=== PATIENT | male | born 1950 | race Caucasian/White ===

== ENCOUNTER 2021-07-05 17:14 | Emergency (ER) | payer MEDICARE, OTHER ==
[~2021-07-05] VITALS: Ht 167.6 cm; Wt 91.1 kg
[2021-07-05 17:14] VITALS: BP 147/82
[2021-07-05] MEDS ORDERED: LISI20TA33 (17:32)
[2021-07-05] MEDS ORDERED: OMEP-218 (17:32)
[2021-07-05] MEDS ORDERED: SIMV20TA22 (17:32)
== END 2021-07-05 20:38 | disposition left against medical advice (07) ==
LOC: M ED 17:14
DX: Z53.29 Procedure and treatment not carried out because of patient's decision for other reasons (principal)

== ENCOUNTER → 2021-07-05 | Outpatient (CLI) | payer MEDICARE, OTHER ==
[~2021-07-05] MED LIST: LISI20TA33; OMEP-218; SIMV20TA22
--- NOTE | 2021-07-05 16:49 | REP ---
INDICATION: SWELLING/MASS/LUMP, LT LEG PAIN, R/O DVT. COMPARISON: None. TECHNIQUE: Multiple ultrasonographic images of the deep venous structures of the left lower extremity were obtained from the inguinal ligament to the ankle. Venous compression techniques, color doppler imaging, and augmentation techniques were also obtained where appropriate. As per the ACR guidelines the anterior tibial vein can not be effectively evaluated. Only compression techniques in the calf on the peroneal and posterior tibial veins was attempted/performed. FINDINGS: There is a focus of abnormal echogenic material seen within the common femoral vein at the level of the greater saphenous vein. This area is non coaptable. No abnormality seen involving the superficial femoral vein or popliteal vein. In the calf the posterior tibial veins and peroneal veins compress normally. In the left inguinal region there is a large solid irregular 5.3 x 3.4 x 4.5 cm sized mass. IMPRESSION: 1. Common femoral vein thrombosis as described above. 2. Large left groin mass and seemingly of lymph node origin and for which clinical evaluation is necessary. <Electronically signed by Ronald Dotson > 07/05/21 [id number]
== END ==
LOC: M RAD 15:29
PROVIDERS: ATTEND Physician Assistant
DX: I82.511 Chronic embolism and thrombosis of right femoral vein (principal)

== ENCOUNTER → 2021-07-06 | Outpatient (CLI) | payer MEDICARE, OTHER ==
[2021-07-06 13:08] LABS: BASO # 0.1 10^3/uL (0.0-0.2); BASO % 0.9 % (0.0-1.0); EOS # 0.4 10^3/uL (0.0-0.5); EOS % 5.1 % (0.0-3.0); HEMATOCRIT 44.5 % (42.0-52.0); HEMOGLOBIN 14.9 g/dl (13.5-17.5); LYMPH # 1.4 10^3/uL (1.5-5.0); LYMPH % 18.5 % (24.0-44.0); MEAN CORPUSCULAR HEMOGLOBIN 28.1 pg (27.0-33.0); MEAN CORPUSCULAR HGB CONC 33.5 g/dl (32.0-36.5); MEAN CORPUSCULAR VOLUME 83.8 fl (80.0-96.0); MONO # 0.8 10^3/uL (0.0-0.8); MONO % 10.1 % (2.0-8.0); PLATELET COUNT, AUTOMATED 184 10^3/uL (150-450); RED BLOOD COUNT 5.31 10^6/uL (4.30-6.10); WHITE BLOOD COUNT 7.6 10^3/uL (4.0-10.0)
[2021-07-06 13:21] LABS: INR 1.12; PROTHROMBIN TIME 14.8 SECONDS (12.7-14.5)
[2021-07-06 13:22] LABS: PARTIAL THROMBOPLASTIN TIME 31.7 SECONDS (25.9-37.0)
[2021-07-06 13:54] LABS: ERYTHROCYTE SEDIMENTATION RATE 8 mm/hr (0-20)
[2021-07-06 14:54] LABS: ALBUMIN 4.1 GM/DL (3.2-5.2); BILIRUBIN,TOTAL 0.7 MG/DL (0.2-1.0); CALCIUM LEVEL 9.7 MG/DL (8.8-10.2); CREATININE FOR GFR 1.97 MG/DL (0.70-1.30); POTASSIUM SERUM 4.8 MEQ/L (3.5-5.1); TOTAL PROTEIN 7.8 GM/DL (6.4-8.2)
== END ==
LOC: M LAB 11:42
PROVIDERS: ATTEND Physician Assistant
DX: I82.409 Acute embolism and thrombosis of unspecified deep veins of unspecified lower extremity (principal)

== ENCOUNTER → 2021-07-13 | Outpatient (REF) | payer MEDICARE, OTHER | LOC: M LAB REF 18:54 | PROVIDERS: ATTEND Surgery | DX: C82.90 Follicular lymphoma, unspecified, unspecified site (principal) ==

== ENCOUNTER → 2021-08-02 | Outpatient (CLI) | payer MEDICARE, OTHER ==
[~2021-08-02] MED LIST changes: +ECOT81TA5 PO; +ELIQ5TAB PO; -LISI20TA33; +LISI20TA33 PO; -OMEP-218; +OMEP-218 PO; +PERC5TAB12 PO; -SIMV20TA22; +SIMV20TA22 PO
--- NOTE | 2021-08-03 13:09 | ECHO ---
ECHOCARDIOGRAM DATE OF PROCEDURE: 08/02/2021 Age: 70 Gender: Height: Weight: REFERRING PROVIDER: Dr. Elsie Gramajo. PATIENT LOCATION: Outpatient. REASON FOR THE TESTING: Chemotherapy ____ monitoring. 2D MEASUREMENTS: IVS 1.1 cm LV 3.7 cm LVPW 1.1 cm LA 3.6 cm Aorta 3.3 cm DOPPLER MEASUREMENT Peak velocity across the aortic valve 1.3 m/s Peak velocity across the LVOT 0.88 m/s Mitral E 0.65 Mitral A 0.82 with a ratio of 0.8 2D COMMENTS: 1. Normal left ventricular size, wall thickness, and normal global left ventricular systolic function with a hyperdynamic left ventricle. The estimated left ventricular systolic ejection fraction is 60 to 70%. 2. Normal left atrium. Normal right atrium and right ventricle. 3. The atrial septum appeared to be normal without evidence of defect or shunt. 4. Normal aortic root. 5. No pericardial effusion seen. 6. Minimally calcified aortic valve with normal leaflet excursion. Mildly calcified mitral annulus with normal appearing mitral valve leaflet motion. Normal tricuspid valve and pulmonic valve. The proximal pulmonary artery branches were not well visualized. 7. The inferior vena cava was not visualized. DOPPLER: No significant valvular abnormalities detected. Abnormal relaxation pattern was noted across the mitral valve leaflets as well as the mitral valve annulus consistent with features of grade 1 left ventricular diastolic dysfunction. IMPRESSION: 1. Normal global left ventricular systolic function. There were some features of grade 1 left ventricular diastolic dysfunction manifested by abnormal relaxation. 2. Aortic valve sclerosis without stenosis or aortic regurgitation. 3. Mitral annulus calcification. No evidence of mitral regurgitation or stenosis.
== END ==
LOC: M CARPUL 10:49
PROVIDERS: ATTEND Internal Medicine Medical Oncology
DX: C91.50 Adult T-cell lymphoma/leukemia (HTLV-1-associated) not having achieved remission (principal)

== ENCOUNTER → 2021-08-03 | Outpatient (CLI) | payer MEDICARE, OTHER ==
[~2021-08-03] MED LIST changes: +LIDOCAINE 1% MDV 20ML VIAL As Ordered ONE; +MIDAZOLAM INJ 2MG/2ML VIAL (J2250 PER 1MG) As Ordered ONE; +NS 1,000 ML IV SCH; +ceFAZolin 2 GM/D5W 50 ML IV BAG (J0690 PER 500MG) As Ordered ONE; +ceFAZolin SOD 2 GM in IV 1 EA IV ONE; +diphenhydrAMINE 50MG/ML VIAL (J1200) As Ordered ONE; +fentaNYL 100 MCG/2 ML INJECTION (J3010) As Ordered ONE
--- NOTE | 2021-08-03 14:33 | IRHP ---
[facility] IR Pre-Procedure H & P General Date of Service: Aug 03, 2021 Procedure: Same Day Surgery Interval History and Physical I have seen the patient and reviewed last H & P performed within 30 days. There is no significant interval change. History of Present Illness Chief Complaint The patient is a 70-year-old male admitted with a reason for visit of B Cell Lymphoma. PRE-PROCEDURE DIAGNOSIS: Lymphoma HEART: Normal rate. LUNGS: Normal breathing at rest. ASA Classification ASA Classification: II-Mild systemic disease Mallampati Score: II NPO: Yes Problems with prior sedation: No Obstructive Sleep Apnea: No Plan moderate sedation Allergies Coded Allergies: No Known Allergies (Verified Allergy, Unknown, 07/05/21) Home Medications Scheduled Apixaban (Eliquis), 1 TAB PO BID, (Reported) Lisinopril (Lisinopril), 1 TAB PO DAILY, (Reported) Omeprazole (Omeprazole), 1 TAB PO DAILY, (Reported) Simvastatin (Simvastatin), TAB PO DAILY, (Reported) Scheduled PRN Oxycodone HCl/Acetaminophen (Percocet 5-325 mg Tablet), 1 TAB PO Q4HP PRN for PAIN Discontinued Medications Aspirin (Ecotrin), 1 TAB PO DAILY, (Reported) Discontinued Reason: PCP discontinued med VS, I&O, 24H, Fishbone Vital Signs/I&O Vital Signs Date Time Temp Pulse Resp B/P (MAP) Pulse Ox O2 Delivery O2 Flow Rate FiO2 08/03/21 14:25 64 18 100 Nasal Cannula 2.0 08/03/21 13:00 97.6 EWA CAMPO MD Aug 03, 2021 14:33
--- NOTE | 2021-08-03 14:34 | IRPON ---
IR Postoperative Note Date Of Procedure: Aug 03, 2021 Time Of Procedure: 14:33 IR Postoperative Note IR Ultrasound and fluoroscopy guided port placement IR Ultrasound of the neck. IR Moderate sedation. Clinical indication: Lymphoma. Physician: Dr. Hammond. Procedure: The patient was advised of the benefits, risks, and alternatives of the procedure and informed consent was obtained. A time-out was performed with verification of the patient's name, MRN, site of procedure and type of procedure to be performed. The patient was positioned in the supine position on the angiographic table. The site was prepped and draped in the usual sterile fashion. Moderate sedation was performed by the physician including the presence of an independent trained RN who assisted and monitored the patient's level of consciousness and physiologic status. Following the administration of fentanyl and Versed , the physician spent 45 minutes of continuous face to face time with the patient. Ultrasound of the neck reveals a patent and compressible right internal jugular vein. A pickers material handlers radiograph reveals mediastinal adenopathy. The neck and anterior chest wall were anesthetized with lidocaine. The right internal jugular vein was accessed using a microintroducer needle under ultrasound guidance, via a lateral approach. An 018 wire was advanced into the superior vena cava, the needle was removed and a microsheath was placed. An Amplatz wire was then passed into the inferior vena cava. An incision at the internal jugular vein access site and anterior chest wall were made using a scalpel. An incision was made at the anterior chest wall. A small pocket was created using a combination of blunt and sharp dissection. A tunneling device was then used to pass the catheter from the pocket to the neck puncture site. An 8- [place] Angio VastPark Smart power port was then positioned in the pocket. The catheter was then measured and cut. The introducer sheath was exchanged for a peel-away sheath. The catheter was passed through the peel-away sheath into the internal jugular vein and the peel-away sheath was removed. The port tip was positioned at the cavoatrial junction. The port was then accessed with a Burton needle. The port flushes and aspirates well. The puncture site in the neck was closed. The chest wall incision was then closed with 2-0 Vicryl and 4-0 Monocryl. Glue and Steri- Strips were applied. A sterile dressing was then applied. The patient tolerated the procedure well and was returned to the PRU in stable condition. Estimated blood loss: <5 ml. Complications: None. Conclusion: 1. Successful placement of an 8-[place] Angio dynamics Smart power port via the right internal jugular vein. The port is ready for immediate use. 2. Patient to follow up in IR clinic in 2 weeks. Thank you for this referral. EWA HAMMOND MD Aug 03, 2021 14:34
[2021-08-03 16:15] VITALS: BP 152/86
== END ==
LOC: M IRPRO 12:02
PROVIDERS: ATTEND Radiology Diagnostic Radiology
DX: C83.38 Diffuse large B-cell lymphoma, lymph nodes of multiple sites (principal); Z79.899 Other long term (current) drug therapy
CPT/HCPCS: 36561; 99152; 99153; C1769; C1788; C1894; J0690; J1200; J1642; J1644; J2250; J3010

== ENCOUNTER → 2021-08-10 | Outpatient (CLI) | payer MEDICARE, OTHER ==
[~2021-08-10] MED LIST changes: -MIDAZOLAM INJ 2MG/2ML VIAL (J2250 PER 1MG) As Ordered ONE; -NS 1,000 ML IV SCH; -ceFAZolin 2 GM/D5W 50 ML IV BAG (J0690 PER 500MG) As Ordered ONE; -ceFAZolin SOD 2 GM in IV 1 EA IV ONE; -diphenhydrAMINE 50MG/ML VIAL (J1200) As Ordered ONE; -fentaNYL 100 MCG/2 ML INJECTION (J3010) As Ordered ONE
[2021-08-10 08:22] LABS: BASO # 0.1 10^3/uL (0.0-0.2); BASO % 1.5 % (0.0-1.0); EOS # 0.4 10^3/uL (0.0-0.5); EOS % 7.1 % (0.0-3.0); HEMATOCRIT 42.8 % (42.0-52.0); LYMPH # 1.5 10^3/uL (1.5-5.0); LYMPH % 24.3 % (24.0-44.0); MEAN CORPUSCULAR HEMOGLOBIN 28.4 pg (27.0-33.0); MEAN CORPUSCULAR HGB CONC 32.7 g/dl (32.0-36.5); MEAN CORPUSCULAR VOLUME 86.8 fl (80.0-96.0); MONO # 0.6 10^3/uL (0.0-0.8); MONO % 9.3 % (2.0-8.0); NEUTROPHILS # 3.5 10^3/uL (1.5-8.5); NEUTROPHILS % 57.5 % (36.0-66.0); PLATELET COUNT, AUTOMATED 168 10^3/uL (150-450); RED BLOOD COUNT 4.93 10^6/uL (4.30-6.10)
[2021-08-10 10:00] VITALS: BP 137/76
--- NOTE | 2021-08-10 17:04 | REP ---
INDICATION: LYMPHOMA. COMPARISON: None. TECHNIQUE: The procedure is performed by KRISTA Barclay, under the direct supervision of Dr. Jack. The risks and benefits of the procedure were explained to the patient and informed consent was obtained both orally and written. Directly prior to the start of the procedure, a formal timeout was done in the exam room. The left iliac crest was localized using CT guidance. Skin was prepped and draped in the usual sterile fashion. Twelve ml of 1% lidocaine was used as a local anesthetic. FINDINGS: Using CT guidance an 11 gauge bone biopsy system was inserted. Approximately 6 mL of marrow fluid was obtained, as well as 1 core of bone. Patient tolerated the procedure well and there were no immediate complications. After the appropriate amount of monitored convalescence the patient was discharged from the department. IMPRESSION: CT-guided bone marrow aspiration and core bone biopsy. <Electronically signed by Sonya Hogue > 08/10/21 1108 <Electronically signed by Davdi Jack > 08/10/21 1700
== END ==
LOC: M IRPRO 07:38
PROVIDERS: ATTEND Internal Medicine Medical Oncology
DX: C83.38 Diffuse large B-cell lymphoma, lymph nodes of multiple sites (principal)

== ENCOUNTER 2021-08-18 11:45 | Inpatient (IN) | payer MEDICARE, OTHER ==
[~2021-08-18] VITALS: Ht 165.1 cm; Wt 89.3 kg
[~2021-08-18 11:45] MED LIST changes: +ALLO10TA PO; -LIDOCAINE 1% MDV 20ML VIAL As Ordered ONE; +ONDA8TAB10 PO; +PRED50TA PO; +PROC10TA4 PO
--- OUTSIDE RECORDS SUMMARY | 2021-08-18 13:42 | CCD | Continuity of Care Document ---
Author Author Michel LEACH DO Organization Unknown Address [address] [facility] [address] [place] [address] Phone [phone] Care Team Providers Care Plant Care Worker Name Role Phone Jerry Leach DO AUTM [phone] Problems Description No Information Available Social History Type Date Description Comments Sex Unknown ETOH Use Occasionally consumed beer in th e past no drinking now Tobacco Use Start: Unknown End: Unknown Patient is a former smoker smoked for 3 yrsbox cigars a month Allergies and adverse reactions Description No Known Drug Allergies Medications Active Medications SIG Qnty Indications Ordering Provide r Date Oxycodone-Acetaminophen 5-325mg Tablets Elsie Gramajo MD Eliquis 5mg Tablets Unknown Lisinopril 20mg Tablets Unknown Omeprazole 20mg Capsules Unknown Simvastatin 20mg Tablets Unknown Immunizations Description No Information Available Vital Signs Date Vital Result Comment 08/07/2021 9:56am BP Systolic 118 mmHg BP Diastolic 68 mmHg Heart Rate 78 /min Height 6475 inches 539'7" Weight 199.12 lb BMI (Body Mass Index) 0.0 kg/m2 Results Description No Information Available Procedures Description No Information Available Medical Devices Description No Information Available Encounters Description No Information Available Assessments Description No Information Available Plan of Treatment No Information Available Functional Status Description No Information Available Mental Status Description No Information Available Referrals Description No Information Available
--- OUTSIDE RECORDS SUMMARY | 2021-08-18 13:42 | CCD | Continuity of Care Document ---
Author Author MARCO BARNES, Michel ROYAL [facility] Unknown Address [address] [facility] [address] [place] [address] Phone [phone] Care Team Providers Care Pharmacist Hospital Name Role Phone Mau Gonzales AUTM [phone] Elsie Mccullough M.D. AUTM [phone] Problems Active Problems Provider Date Essential hypertension Dann Chamberlain MD Onset: 021 Social History Type Date Description Comments Sex Unknown ETOH Use Denies alcohol use Tobacco Use Start: Unknown Denies Smoking Recreational Drug Use Denies Drug Use Allergies and adverse reactions Description No Known Drug Allergies Medications Active Medications SIG Qnty Indications Ordering Provide r Date Omeprazole 20mg Capsules DR 1 by mouth every day Unknown Eliquis 5mg Tablets 1 tab by mouth twice a day 60tabs Unknown Lisinopril 20mg Tablets 1 tab by mouth every day Unknown Simvastatin 20mg Tablets 1 tab by mouth every day Unknown Immunizations Description No Information Available Vital Signs Date Vital Result Comment 07/20/2021 10:39am BP Systolic 156 mmHg BP Diastolic 86 mmHg Body Temperature 97.5 F Height 66 inches 5'6" Weight 202.00 lb BMI (Body Mass Index) 32.6 kg/m2 [place] Body Weight 142 lb Weight 91.627 kg BSA (Body Surface Area) 2.01 m2 07/13/2021 3:31pm BP Systolic 152 mmHg BP Diastolic 81 mmHg Heart Rate 77 /min Body Temperature 98.8 F Height 66 inches 5'6" Weight 200.00 lb BMI (Body Mass Index) 32.3 kg/m2 [place] Body Weight 142 lb Weight 90.720 kg BSA (Body Surface Area) 2.00 m2 Results Test Acquired Date Facility Test Result H/L Range Note Laboratory test finding 07/13/2021 [facility] [address] [place], [place] [id number] [phone] Pathology Request For Service <pending> Procedures Date Code Description Status 07/20/2021 76832 Office/Outpatient Established Lo w MDM 20-29 Min Completed 07/13/2021 70438 Office/Outpatient New Low MDM 30 -44 Minutes Completed Medical Devices Description No Information Available Encounters Type Date Location Provider Dx Diagnosis Office Visit 07/20/2021 10:45a [facility] Iftikhar Chamberlain MD C85.90 Non-Hodgkin lymphoma, unspec ified, unspecified site Assessments Date Code Description Provider 07/20/2021 C85.90 Malignant lymphoma Dann Campbell MD 07/13/2021 R19.00 Groin mass Dann rodgers MD Plan of Treatment 07/20/2021 - Dann Chamberlain MD* C85.90 Malignant lymphoma* Comments:* I only have the preliminary reading available and their primary consideration is B-cell lymphoma pending further studies as well as second opinion reading from [facility]. Given the initial findings, I will refer her to medical oncology (Dr. Mccullough) for further evaluation and treatment of the lymphoma. I told him that if it turns out they will need more tissue, we may need a full excision of the left groin mass and with him we will need to do this in the operating room but otherwise if they have enough tissues, may not need any further surgical intervention with regards to the left groin mass.Follow-up as needed. Functional Status Description No Information Available Mental Status Description No Information Available Referrals Refer to Reason for Referral Status Appt Date Elsie Mccullough M.D. DEAR DR MCCULLOUGH: PLEASE EVAL UATE AND TREAT MICHEL FLORENTINO. I only have the preliminary reading available and their primary consideration is B-cell lymphoma pending further studies as well as second opinion reading from [facility]. Given the initial findings, I will refer her to medical oncology (Dr. Mccullough) for further evaluation and treatment of the lymphoma. I told him that if it turns out they will need more tissue, we may need a full excision of the left groin mass and with him we will need to do this in the operating room but otherwise if they have enough tissues, may not need any further surgical intervention with regards to the left groin mass. I have attached my records for your review. Thank you in advance for seeing him. Sincerely, Dann Chamberlain M.D. [facility] [address], [place] [id number] [phone] Dann Chamberlain MD LARGE MASS LEFT INGUINAL REGION Scheduled 07/13/2021 [address] [facility] [address] [place], [place] [id number] [phone]
--- OUTSIDE RECORDS SUMMARY | 2021-08-18 13:42 | CCD | Continuity of Care Document ---
Author Author MARCO BARNES, Michel ROYAL [facility] Unknown Address [address] [facility] [address] [place] [address] Phone [phone] Care Team Providers Care Prenatal Nurse Name Role Phone ChristianMau AUTM [phone] Problems Active Problems Provider Date Essential hypertension [...] lb BMI (Body Mass Index) 32.6 kg/m2 [place] Body Weight 142 lb Weight 91.627 kg BSA (Body Surface Area) 2.01 m2 07/13/2021 3:31pm BP Systolic 152 mmHg BP Diastolic 81 mmHg Heart Rate 77 /min Body Temperature 98.8 F Height 66 inches 5'6" Weight 200.00 lb BMI (Body Mass Index) 32.3 kg/m2 [place] Body Weight 142 lb Weight 90.720 kg BSA (Body Surface Area) 2.00 m2 Results Test Acquired Date Facility Test Result H/L Range Note Laboratory test finding 07/13/2021 [facility] Pathology [address] [place] [address] [phone] Pathology Request For Service <pending> Procedures Date Code Description Status 07/13/2021 00129 Office/Outpatient New Low MDM 30 -44 Minutes Completed Medical Devices Description No Information Available Encounters Description No Information Available Assessments Date Code Description Provider 07/20/2021 C85.90 Malignant lymphoma Dann Campbell MD 07/13/2021 R19.00 Groin mass Dann rodgers MD Plan of Treatment 07/20/2021 - Dann Chamberlain MD* C85.90 Malignant lymphoma* Comments:* B cell lymphoma on Functional Status Description No Information Available Mental Status Description No Information Available Referrals Refer to Reason for Referral Status Appt Dann Chamberlain MD LARGE MASS LEFT INGUINAL REGION Scheduled 07/13/2021 [address] [facility] [address] [place] [address] [phone]
--- OUTSIDE RECORDS SUMMARY | 2021-08-18 13:42 | CCD | Continuity of Care Document ---
Author Organization Unknown Address Unknown Phone Unavailable Care Team Providers Care Rod Tape Operator Name Role Phone Jerry Farley DO AUTM [phone] Problems Description No Information Available Social History Type Date Description Comments Sex Unknown ETOH Use Occasionally consumed beer in e past no drinking now Tobacco Use Start: Unknown End: Unknown Patient is a former smoker smoked for 3 yrsbox cigars a month Allergies and adverse reactions Description No Known Drug Allergies Medications Active Medications SIG Qnty Indications Ordering Provide r Date Oxycodone-Acetaminophen 5-325mg Tablets Elsie Gramajo MD Eliquis 5mg Tablets Unknown Lisinopril 20mg Tablets Unknown Omeprazole 20mg Capsules DR Unknown Simvastatin 20mg Tablets Unknown Immunizations Description No Information Available Vital Signs Date Vital Result Comment 08/07/2021 9:56am BP Systolic 118 mmHg BP Diastolic 68 mmHg Heart Rate 78 /min Height 6475 inches 539'7" Weight 199.12 lb BMI (Body Mass Index) 0.0 kg/m2 Results Test Acquired Date Facility Test Result H/L Range Note CBC With Differential 08/10/2021 [facility] [address] [place], [place] [id number] [phone] White Blood Count 6.0 10 Normal 4.0-10.0 Red Blood Count 4.93 10 Normal 4.30-6.10 Hemoglobin 14.0 g/dL Normal 13.5-17.5 Hematocrit 42.8 % Normal 42.0-52.0 Mean Corpuscular Volume 86.8 fl Normal 80.0-96.0 Mean Corpuscular Hemoglobin 28.4 pg Normal 27.0-33.0 Mean Corpuscular HGB Conc 32.7 g/dL Normal 32.0-36.5 Red Cell Distribution Width 12.9 % Normal 11.5-14.5 Platelet Count, Automated 168 10 Normal 150-450 Neutrophils % 57.5 % Normal 36.0-66.0 Lymph % 24.3 % Normal 24.0-44.0 Taliaferro % 9.3 % High 2.0-8.0 Eos % 7.1 % High 0.0-3.0 Baso % 1.5 % High 0.0-1.0 Immature Granulocyte % 0.3 % Normal 0-3.0 Nucleated Red Blood Cell % 0.0 % Normal 0-0 Neutrophils # 3.5 10 Normal 1.5-8.5 Lymph # 1.5 10 Normal 1.5-5.0 Taliaferro # 0.6 10 Normal 0.0-0.8 Eos # 0.4 10 Normal 0.0-0.5 Baso # 0.1 10 Normal 0.0-0.2 Procedures Description No Information Available Medical Devices Description No Information Available Encounters Description No Information Available Assessments Date Code Description Provider 08/07/2021 C85.90 Non-Hodgkin lymphoma, unspecifie d, unspecified site Jerry Farley DO 08/07/2021 I82.402 Acute embolism and t hrombosis of unspecified deep veins of left lower extremity Jerry Farley DO 08/07/2021 I10 Essential (primary) hypertension Jerry Farley DO 08/07/2021 E78.5 Hyperlipidemia, unspecified Chri romy Farley DO Plan of Treatment Future Appointment(s):* 11/07/2021 9:00 am - Jerry Farley DO at [facility] 08/07/2021 - Jerry Farley DO* C85.90 Non-Hodgkin lymphoma, unspecified, unspecified site* Comments:* Unclear on exact type of lymphoma, he is followed by Dr. Gramajo and currently undergoing further evaluation. Has follow up with Dr. Gramajo in about 10 days. Has BM biopsy in 3 days. Will review all records when available. Holding off on labs at this time, but EKG reviewed. His pain is well controlled on current regimen. * I82.402 Acute embolism and thrombosis of unspecified deep veins of left lower extremity* Comments:* Still symptomatic, but this is a relatively recent diagnosis. He is compliant with DOAC. This is a provoked DVT, likely can stop treatment once cancer has been treated. * I10 Essential (primary) hypertension* Comments:* Well controlled and at target on current regimen. * E78.5 Hyperlipidemia, unspecified* Comments:* He is compliant with statin, will review recent blood work for lipid panel. Functional Status Description No Information Available Mental Status Description No Information Available Referrals Description No Information Available
--- OUTSIDE RECORDS SUMMARY | 2021-08-18 13:42 | CCD | Continuity of Care Document ---
Author Author MARCO BARNES, Michel ROYAL [facility] Unknown Address [address] [facility] [address] [place] [address] Phone [phone] Care Team Providers Care Wet Pour Mixer Name Role Phone Mau Gonzales AUTM [phone] Elsie Mccullough M.D. AUTM [phone] Problems Active Problems Provider Date Essential hypertension [...] lb BMI (Body Mass Index) 32.6 kg/m2 [place] Body Weight 142 lb Weight 91.627 kg BSA (Body Surface Area) 2.01 m2 07/13/2021 3:31pm BP Systolic 152 mmHg BP Diastolic 81 mmHg Heart Rate 77 /min Body Temperature 98.8 F Height 66 inches 5'6" Weight 200.00 lb BMI (Body Mass Index) 32.3 kg/m2 [place] Body Weight 142 lb Weight 90.720 kg BSA (Body Surface Area) 2.00 m2 Results Test Acquired Date Facility Test Result H/L Range Note Laboratory test finding 07/13/2021 [facility] [address] [place], [place] [id number] [phone] Pathology Request For Service (SEE NOTE) 1 1 Addendum 1 Entered: -7420 This addendum is being issued to report additional results: Positive for IGH-BCL2 [t(14;18)] gene rearrangement. Negative for BCL6 gene rearrangement. Negative for MYC gene rearrangement. These findings are consistent with diagnosis of follicular lymphoma and diffuse large B-cell lymphoma. There is no evidence of "double-hit" or "triple-hit" diffuse large B-cell lymphoma. The diagnosis remains unchanged. Please see the scanned documentation for the full hematopathology report ([id number]). 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 * FISH testing is pending, and the results will be reported in an addendum. Comment: The DLBL is likely a large cell transformation of follicular lymphoma. The cells are smaller than usual. Immunohistochemical stains at [facility] show that the lesional cells are diffusely positive for CD20 and negative for SOX-10. Ancillary studies at [facility] showed diffuse CD10, CD20, bcl-2 positivity, and 40% positivity for bcl-2. MUM-1 and c-myc were negative. CD3 and CD5 highlighted scattered T-cells. The proliferation index by ki-67 IHC was 70%. In the areas of follicular lymphoma, the irregular follicles maribel with CD10, CD20, bcl-6 and strong bcl-2. CD23 highlights follicular dendritic meshworks. The proliferation index by ki-67 IHC was low (<5%). OFELIA-AUDI and cyclin D1 were negative. 07/25/2021813 CLINICAL DIAGNOSIS Mass left groin 07/14/20211322 GROSS DIAGNOSIS Received in formalin labeled "left groin mass biopsy" and consists of multiple soft christine needle core shaped fragments measuring 1.2 x 1.0 x 0.2 cm. in aggregate. All in one. -SV 07/14/20211322 PRELIMINARY DIAGNOSIS 07/25/2021813 Signed CHESTER MUHAMMAD MD 07/18/2021 0817 (Prelim) Signed CHESTER MUHAMMAD MD 07/25/2021813 Procedures Date Code Description Status 07/20/2021 02156 Office/Outpatient Established Lo w MDM 20-29 Min Completed 07/13/2021 85285 Office/Outpatient New Low MDM 30 -44 Minutes Completed 07/13/2021 89994 Fine Needle Aspiration Biopsy In lcd Ultrasound Guidance Completed Medical Devices Description No Information Available Encounters Type Date Location Provider Dx Diagnosis Office Visit 07/20/2021 10:45a [facility] Iftikhar Chamberlain MD C85.90 Non-Hodgkin lymphoma, unspec ified, unspecified site Office Visit 07/13/2021 3:15p [facility] Iftikhar Chamberlain MD R19.00 Intra-abd and pelvic swellin g, mass and lump, unsp site Assessments Date Code Description Provider 07/20/2021 C85.90 Malignant lymphoma Dann Campbell MD 07/13/2021 R19.00 Groin mass Dann rodgers MD Plan of Treatment 07/20/2021 - Dann Chamberlain MD* C85.90 Malignant lymphoma* Comments:* I only have the preliminary reading available and their primary consideration is B-cell lymphoma pending further studies as well as second opinion reading from [facility]. Given the initial findings, I will refer [...] as well as second opinion reading from [facility]. Given the initial findings, I will refer [...] seeing him. Sincerely, Dann Chamberlain M.D. Created [facility] [address] [place], [place] [address] [phone] Dann Chamberlain MD LARGE MASS LEFT INGUINAL REGION Scheduled 07/13/2021 [address] [facility] [address] [place] [address] [phone]
--- OUTSIDE RECORDS SUMMARY | 2021-08-18 13:43 | CCD | Continuity of Care Document ---
Author Author MARCO BARNES, Michel ROYAL [facility] Unknown Address [address] [facility] [address] [place] [address] Phone [phone] Care Team Providers Care Signal Operator Linguist Name Role Phone ChristianMau AUTM [phone] Problems Active Problems Provider Date Essential hypertension [...] lb BMI (Body Mass Index) 32.6 kg/m2 [place] Body Weight 142 lb Weight 91.627 kg BSA (Body Surface Area) 2.01 m2 07/13/2021 3:31pm BP Systolic 152 mmHg BP Diastolic 81 mmHg Heart Rate 77 /min Body Temperature 98.8 F Height 66 inches 5'6" Weight 200.00 lb BMI (Body Mass Index) 32.3 kg/m2 [place] Body Weight 142 lb Weight 90.720 kg BSA (Body Surface Area) 2.00 m2 Results Test Acquired Date Facility Test Result H/L Range Note Laboratory test finding 07/13/2021 [facility]ology [address] [place] [address] [phone] Pathology Request For Service <pending> Procedures Date Code Description Status 07/13/2021 68477 Office/Outpatient New Low MDM 30 -44 Minutes [...] MASS LEFT INGUINAL REGION Scheduled 07/13/2021 [address] [facility] [address] [place] [address] [phone]
--- OUTSIDE RECORDS SUMMARY | 2021-08-18 13:43 | CCD | Continuity of Care Document ---
Author Author MARCO BARNES, Michel ROYAL Organization Unknown Address [address] [facility] [address] [place] [address] Phone [phone] Care Team Providers Care Powered Bridge Specialist Name Role Phone Fabián Gonzalesbowen Mueller AUTM [phone] Problems Active Problems Provider Date Essential hypertension [...] Available Vital Signs Date Vital Result Comment 07/13/2021 3:31pm BP Systolic 152 mmHg BP Diastolic 81 mmHg Heart Rate 77 /min Body Temperature 98.8 F Height 66 inches 5'6" Weight 200.00 lb BMI (Body Mass Index) 32.3 kg/m2 [place] Body Weight 142 lb Weight 90.720 kg BSA (Body Surface Area) 2.00 m2 Results Test Acquired Date Facility Test Result H/L Range Note Laboratory test finding 07/13/2021 [facility]ology [address] [place], [place] [id number] [phone] Pathology Request For Service <pending> Procedures Description No Information Available Medical Devices Description No Information Available Encounters Description No Information Available Assessments Description No Information Available Plan of Treatment Future Appointment(s):* 07/20/2021 10:45 am - Dann Chamberlain MD at [facility] Functional Status Description No Information Available Mental Status Description No Information Available Referrals Refer to Reason for Referral Status Appt Date Dann Chamberlain MD LARGE MASS LEFT INGUINAL REGION Scheduled 07/13/2021 [address] [place] [id number] [phone]
--- OUTSIDE RECORDS SUMMARY | 2021-08-18 13:43 | CCD ---
Author Author [facility] Organization [facility] Address Unknown Phone Unavailable Care Team Providers Care [employer]usher Assembler Name Role Phone GONZALES, ALMA ROSA MAU RPA-C Unavailable Unavailable GONZALES, ALMA ROSA MAU RPA-C Unavailable Unavailable GONZALES, ALMA ROSA MAU RPA-C Unavailable Unavailable GONZALES, ALMA ROSA MAU RPA-C Unavailable Unavailable GONZALES, ALMA ROSA MAU RPA-C Unavailable Unavailable GONZALES, ALMA ROSA MAU RPA-C Unavailable Unavailable GONZALES, ALMA ROSA MAU RPA-C Unavailable Unavailable GONZALES, ALMA ROSA MAU RPA-C Unavailable Unavailable GONZALES, ALMA ROSA MAU RPA-C Unavailable Unavailable GONZALES, ALMA ROSA MAU RPA-C Unavailable Unavailable GONZALES, ALMA ROSA MAU RPA-C Unavailable Unavailable GONZALES, ALMA ROSA MAU RPA-C Unavailable Unavailable GONZALES, ALMA ROSA MAU RPA-C Unavailable Unavailable GONZALES, ALMA ROSA MAU RPA-C Unavailable Unavailable GONZALES, ALMA ROSA MAU RPA-C Unavailable Unavailable GONZALES, ALMA ROSA MAU RPA-C Unavailable Unavailable GONZALES, ALMA ROAS MAU RPA-C Unavailable Unavailable GONZALES, ALMA ROSA MAU RPA-C Unavailable Unavailable GONZALES, ALMA ROSA MAU RPA-C Unavailable Unavailable GONZALES, ALMA ROSA MAU RPA-C Unavailable Unavailable GONZALES, ALMA ROSA MAU RPA-C Unavailable Unavailable GONZALES, ALMA ROSA MAU RPA-C Unavailable Unavailable GONZALES, ALMA ROSA MAU RPA-C Unavailable Unavailable GONZALES, ALMA ROSA MAU RPA-C Unavailable Unavailable GONZALES, ALMA ROSA MAU RPA-C Unavailable Unavailable GONZALES, ALMA ROSA MAU RPA-C Unavailable Unavailable GONZALES, AMLA ROSA MAU RPA-C Unavailable Unavailable GONZALES, ALMA ROSA MAU RPA-C Unavailable Unavailable GONZALES, ALMA ROSA MAU RPA-C Unavailable Unavailable GONZALES, ALMA ROSA MAU RPA-C Unavailable Unavailable GONZALES, ALMA ROSA MAU RPA-C Unavailable Unavailable GONZALES, ALMA ROSA MAU RPA-C Unavailable Unavailable GONZALES, ALMA ROSA MAU RPA-C Unavailable Unavailable GONZALES, ALMA ROSA MAU RPA-C Unavailable Unavailable GONZALES, ALMA ROSA MAU RPA-C Unavailable Unavailable GONZALES, ALMA ROSA MAU RPA-C Unavailable Unavailable GONZALES, ALMA ROSA MAU RPA-C Unavailable Unavailable GONZALES, ALMA ROSA MAU RPA-C Unavailable Unavailable GONZALES, ALMA ROSA MAU RPA-C Unavailable Unavailable GONZALES, ALMA ROSA MAU RPA-C Unavailable Unavailable GONZALES, ALMA ROSA MAU RPA-C Unavailable Unavailable GONZALES, ALMA ROSA MAU RPA-C Unavailable Unavailable GONZALES, ALMA ROSA MAU RPA-C Unavailable Unavailable BARCORINEUGA, Stephan ROYAL MD Unavailable Unavailable BARAYUGA, Stephan ROYAL MD Unavailable Unavailable BARAYUGA, Stephan ROYAL MD Unavailable Unavailable BARAYUGA, Stephan ROYAL MD Unavailable Unavailable BARAYUGA, Stephan ROYAL MD Unavailable Unavailable BARAYUGA, Stephan ROYAL MD Unavailable Unavailable BARAYUGA, Stephan ROYAL MD Unavailable Unavailable BARAYUGA, Stephan ROYAL MD Unavailable Unavailable BARAYUGA, Stephan ROYAL MD Unavailable Unavailable BARAYUGAStephan MD Unavailable Unavailable BARAYUGAStephan MD Unavailable Unavailable BARAYUGA, Stephan ROYAL MD Unavailable Unavailable BARAYUGA, Stephan ROYAL MD Unavailable Unavailable BARAYUGAStephan MD Unavailable Unavailable BARAYUGAStephan MD Unavailable Unavailable BARAYUGAStephan MD Unavailable Unavailable BARCORINEUGAStephan MD Unavailable Unavailable BARCORINEUGAStephan MD Unavailable Unavailable BARCORINEUGAStephan MD Unavailable Unavailable BARCORINEUGAStephan MD Unavailable Unavailable BARCORINEUGA, Stephan ROYAL MD Unavailable Unavailable BARCORINEUGAStephan MD Unavailable Unavailable BARCORINEUGAStephan MD Unavailable Unavailable BARCORINEUGAStephan MD Unavailable Unavailable BARCORINEUGAStephan MD Unavailable Unavailable BARCORINEUGA, Stephan ROYAL MD Unavailable Unavailable BARAYUGAStephan MD Unavailable Unavailable BARAYUGA, Stephan ROYAL MD Unavailable Unavailable BARAYUGA, B LELE BARNES Unavailable Unavailable BARCORINEUGA, B LELE BARNES Unavailable Unavailable BARCORINEUGA, B LELE BARNES Unavailable Unavailable BARCORINEUGA, B LELE BARNES Unavailable Unavailable BARCORINEUGA, B LELE BARNES Unavailable Unavailable BARCORINEUGA, B LELE BARNES Unavailable Unavailable BARCORINEUGA, B LELE MD Unavailable Unavailable Lamberto Evans Unavailable Unavailable ARNOLD, P FANTA MD Unavailable Unavailable ARNOLD, P FANTA MD Unavailable Unavailable ARNOLD, P FANTA MD Unavailable Unavailable ARNOLD, P FANTA MD Unavailable Unavailable ARNOLD, P FANTA MD Unavailable Unavailable ARNOLD, P FANTA MD Unavailable Unavailable ARNOLD, P FANTA MD Unavailable Unavailable ARNOLD, P FANTA MD Unavailable Unavailable ARNOLD, P FANTA MD Unavailable Unavailable ARNOLD, P FANTA MD Unavailable Unavailable ARNOLD, P FANTA MD Unavailable Unavailable ARNOLD, P FANTA MD Unavailable Unavailable ARNOLD, P FANTA MD Unavailable Unavailable ARNOLD, P FANTA MD Unavailable Unavailable ARNOLD, P FANTA MD Unavailable Unavailable ARNOLD, P FANTA MD Unavailable Unavailable ARNOLD, P FANTA MD Unavailable Unavailable ARNOLD, P FANTA MD Unavailable Unavailable ARNOLD, P FANTA MD Unavailable Unavailable ARNOLD, P FANTA MD Unavailable Unavailable ARNOLD, P FANTA MD Unavailable Unavailable ARNOLD, P FANTA MD Unavailable Unavailable ARNOLD, P FANTA MD Unavailable Unavailable ARNOLD, P FANTA MD Unavailable Unavailable ARNOLD, P FANTA MD Unavailable Unavailable ARNOLD, P FANTA MD Unavailable Unavailable ARNOLD, P FANTA MD Unavailable Unavailable ARNOLD, P FANTA MD Unavailable Unavailable ARNOLD, P FANTA MD Unavailable Unavailable ARNOLD, P FANTA MD Unavailable Unavailable ARNOLD, P FANTA MD Unavailable Unavailable ARNOLD, P FANTA MD Unavailable Unavailable ARNOLD, P FANTA MD Unavailable Unavailable ARNOLD, P FANTA MD Unavailable Unavailable ARNOLD, P FANTA MD Unavailable Unavailable ARNOLD, P FANTA MD Unavailable Unavailable ARNOLD, P FANTA MD Unavailable Unavailable Re-disclosure Warning The records that you are about to access may contain information from federally-assisted alcohol or drug abuse programs. If such information is present, then the following federally mandated warning applies: This information has been disclosed to you from records protected by federal confidentiality rules (42 CFR part 2). The federal rules prohibit you from making any further disclosure of this information unless further disclosure is expressly permitted by the written consent of the person to whom it pertains or as otherwise permitted by 42 CFR part 2. A general authorization for the release of medical or other information is NOT sufficient for this purpose. The Federal rules restrict any use of the information to criminally investigate or prosecute any alcohol or drug abuse patient.The records that you are about to access may contain highly sensitive health information, the redisclosure of which is protected by Article 27-F of the [facility] Public Health law. If you continue you may have access to information: Regarding HIV / AIDS; Provided by facilities licensed or operated by the [facility] Office of Mental Health; or Provided by the [facility] Office for People With Developmental Disabilities. If such information is present, then the following [facility] mandated warning applies: This information has been disclosed to you from confidential records which are protected by state law. State law prohibits you from making any further disclosure of this information without the specific written consent of the person to whom it pertains, or as otherwise permitted by law. Any unauthorized further disclosure in violation of state law may result in a fine or [place] health [facility] sentence or both. A general authorization for the release of medical or other information is NOT sufficient authorization for further disc losure. Encounters Encounter Providers Location Date Indications Data Source(s ) Outpatient Admitter: Chester Andradeeferrer: Chester Evans 08/10/2021 12:00:00 AM EST Unspecified B-cell lymphoma, unspecified site [facility] Unspecified B-cell lymphoma, unspecified site Outpatient Attender: FANTA GRAMAJO MD CPSCAORT-IMAPD 01/2021 10:49:00 AM EDT - 08/04/2021 10:50:00 AM EDT C83.38 [facility] C83.38 Patient discharged. Outpatient Attender: LELE Hsieh/Juan/Femi/ Reinmarija 07/20/2021 10:45:00 AM EDT [facility] ([facility]) Outpatient Attender: LELE Luis/Femi/ Reinmarija 07/13/2021 03:15:00 PM EDT [facility] ([facility]) Outpatient Admitter: Chester Moiseer: Chester Evans 07/13/2021 12:00:00 AM EDT Enlarged lymph nodes, unspecified [facility] Enlarged lymph nodes, unspecified Mau Gonzales RPA-C: [address], [place] [address], Ph. Attender: MAU GONZALES RPA-C [facility] Medical 07/05/2021 12:00:00 AM EDT [facility] ([facility]) Immunizations Vaccine Date Status Description Data Source(s) COVID-19, mRNA, LNP-S, PF, 30 mcg/0.3 mL dose 06/30/2021 12: 00:00 AM EDT completed 06/30/2021 [facility] ([facility]) COVID-19 VACCINE Pfizer 06/30/2021 12:00:00 AM EDT completed [facility] Vaccine Series Complete: NOThis Data was Submitted to [facility] Via [facility]. COVID-19, mRNA, LNP-S, PF, 30 mcg/0.3 mL dose 12/31/2020 12: 00:00 AM EDT completed 12/31/2020 [facility] ([facility]) COVID-19, mRNA, LNP-S, PF, 30 mcg/0.3 mL dose 12/10/2020 12: 00:00 AM EST completed 12/10/2020 [facility] ([facility]) Medications No Information Insurance Providers Payer name Policy type / Coverage type Policy ID Covered alliance party ID Covered alliance party's relationship to palm Policy Palm Plan Information [employer] [id number] 0 [id number] [employer] [id number] 0 [id number] [place] [id number] [id number] SP [id number] [place] [id number] [id number] SP [id number] Medicare Part B [facility] UNAVAILABLE 0 UNAVAILABLE Medicare Part A of [place] Other 0 [id number] Self 0 MEDICARE A [id number] Self [id number] FOR LIFE U [id number] Self [id number] MEDICARE [id number] S [id number] [id number] MEDICARE [id number] SP [id number] A FOR LIFE [id number] SP [id number] FOR LIFE [id number] SP [id number] MEDICARE [id number] SP [id number] [id number] [facility] [id number] S [id number] Problems, Conditions, and Diagnoses Code Display Name Description Problem Type Effective Dates Data Source(s) C85.10 Unspecified B-cell lymphoma, unspecified site Unspecified B-cell lymphoma, unspecified site Diagnosis 08/10/2021 11:22:00 AM [facility] R59.9 Enlarged lymph nodes, unspecified Enlarged lymph nodes, unspecified Diagnosis 07/13/2021 12:34:00 PM [facility] [id number] Essential hypertension Essential hypertension Problem 07/13/2021 12:00:00 AM EDT [facility] ([facility], ) [id number] History of malignant neoplasm of skin Hi story of Malignant Neoplasm of Skin Problem 07/06/2021 12:00:00 AM EDT [facility] ([facility]) [id number] Gastroesophageal reflux disease without esophagitis Gastroesophageal Reflux Disease without Esophagitis Problem 07/06/2021 12:00:00 AM ED T [facility] ([facility]) [id number] Hypertensive disorder Hypertensive Disorder Problem 07/06/2021 12:00:00 AM EDT [facility] ([facility]) [id number] Hyperlipidemia Hyperlipidemia Problem 07/06/2021 12:00: 00 AM EDT [facility] ([facility]) Surgeries/Procedures Procedure Description Date Indications Data Source(s) OFFICE OUTPATIENT VISIT 15 MINUTES 07/20/2021 12:00:00 AM EDT [facility] ([facility], ) Fine Needle Aspiration Biopsy Inlcd Ultrasound Guidance 07/13/2021 12:00:00 AM EDT [facility] OFFICE OUTPATIENT NEW 30 MINUTES 07/13/2021 12:00:00 A M MIRLANDE CHEEK ([facility], ) Results ID Date Data Source [id number] 08/11/2021 04:26:00 PM [facility] Hematopathology Report See Addendum Alonso wName: ILA LYNNMRN: [id number] Number: [id number] Date: 08/10/2021 09:00Received Date: 08/10/2021 16:19Physician(s): CHESTER EVANS MD VYAS, SHIKHAR G,MDSpecimen(s) ReceivedA: Bone Marrow, Flow Cytometry; RECEIVED 1 GREEN TOP BM, 2 ASP AND 1 PBSMEAR (1 EXTRA EDTA BM SENT TO MOLECULAR)Clinical HistoryDBLCL and follicular lymphoma. IGH-BCL2 positive.TEST REQUESTED/PERFORMED: Flow cytometry analysis. DiagnosisFlow cytometry of bone marrow: Involvement by previously diagnosedfollicular lymphoma/diffuse large B-cell lymphoma. Mirta Clinton M.D.;R esident PathologistElectronically Signed By Hayde Albert M.D. Attending Pathologist 08/11/2021 16:26:25The attending pathologist named above attests that he/she has personallyreviewed the relevant preparation(s) for the specimen(s) and rendered thefinal diagnosis. Addendum 08/18/2021 FISH shows IGH-BCL2 rearrangement in 1.5% of nuclei. This is close to the1% frequency of the clonal cells in the flow study and supports thediagnosis. 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 Addendum Electronically Signed By: Hayde Albert M.D. 2020 09:22 ProceduresFlow Cytometry Date Ordered:08/10/2021 Status: Signed Out08/11/2021 InterpretationPERIPHERAL BLOOD: CBC and differential performed at [facility], [address] [place] [address] on 08/10/21.WBC 6.0 K/uLRBC 4.93 M/uLHgb 14.0 g/dLHct 42.8 %MCV 86.8 fLMCH 28.4 pgMCHC 32.7 g/dLRDW 12.9 %Platelets 168 K/uLDifferential Count (100 cells):54 % Zuadinvicje85 % Eosinophils 1 % Xtanpevqd53 % Lymphocytes 8 % Monocytes-------100 % A peripheral blood film is reviewed. BONE MARROW ASPIRATE:Differential Count (100 cells):30 % Erythroid Precursors 4 % Haarpqasixbhf68 % N. Myelocytes 7 % N. Metamyelocytes and Band Forms23 % Wxzunmjlzdk11 % Eosinophils 2 % Basophils 4 % Lymphocytes 6 % Plasma Cells--------100 % Lymphoid Panel: The following markers were assayed: CD45 (gate), CD2, CD3, CD4, CD5, CD7,CD8, CD10, CD11c, CD19,CD20, CD22, CD23, CD25, CD33, CD34, CD38, CD56, CD57, CD64, CD103, CD117,CD123, HLA-DR, [place],Lambda, and FMC7.# events: 43038Mhqejleze: 94%Flow Cytometry Differential (CD45/SSC)Lymphocyte [place]: 11%CD45 dim [place]: 2%Monocyte [place]: 3%Granulocyte [place]: 75%Nucleated/Erythroid [place]: 5%The lymphocyte gate showsB-cells (CD19): 19%T-cells (CD3): 55%NK-cells (CD3-/CD56+): 24%[place]/Lambda Ratio: 0.3CD4/CD8 Ratio: 1.9Results: (expressed as % of lymphocyte gate)B-cell markers: [place] = 5, Lambda = 11, CD19 = 16, CD20 = 22, CD22 = 14,CD19/10 = 9,CD19/CD5 = 1, CD19/CD23 = 7, FMC7 = 18, CD38/CD20 = 7Light chain as % of B-Cells: CD19/[place] = 22, CD19/Lambda = 70,CD19/CD5/[place] = 1, CD19/CD5/Lambda = 3CD19/CD10/[place] = 2, CD19/CD10/Lambda = 53T-cell Markers: CD2 = 71, CD3 = 55, CD3/CD4 = 34, CD3/CD8 = 18, CD5 = 59,CD7 = 71, CD3/57 = 6NK-cell Markers: CD56 = 26, CD57 = 15Other Markers: CD25 = 4, CD103 = 2, CD11c = 21, CD103/CD11c = 0, CD103/25= 0, CD103/22 = 0CD10 = 10, CD38 = 37Results: (expressed as % of CD45 dim gate)B-cell markers: [place] = 2, Lambda = 4, CD19 = 7, CD20 = 2, CD22 = 6,CD19/10 = 7, CD19/CD5 = 1, CD19/CD23 = 1, FMC7 = 2, CD38/CD20 = 2Light chain as % of B-Cells: CD19/[place] = 13, CD19/Lambda = 35,CD19/CD10/[place] = 1, CD19/CD10/Lambda = 13T-cell Markers: CD2 = 13, CD3 = 2, CD3/CD4 = 2, CD3/CD8 = 1, CD5 = 4, CD7= 11, CD3/57 = 0NK-cell Markers: CD56 = 10, CD57 = 4Basophil Markers: CD123 (HLA-DR-) = 27Other Markers: CD10 = 13, CD38 = 92, CD33 = 49, CD34 = 25, CD64 = 6, CD117= 14, CD123 = 41,HLA- DR = 40, CD25 = 20, CD103 = 2, CD11c = 59 Results-CommentsLymphocytes reveal 9% lambda-restricted and CD10 positive B cells,positive CD19 (moderate), CD20, CD22, and FMC7. The remainder of thelymphocytes are T cells with normal expression of garg T-cell markers and anormal CD4/CD8 ratio, normal proportions o f NK and cytotoxic T cells, andpolyclonal B cells. CD34+ blasts comprise fewer than 1% of cells studied. Blasts, monocytes,and granulocytes show no definitive immunophenotypic aberrancies. Procedure Electronically Signed By:Hayde Albert M.D.08/11/2021 This report may include one or more immunohistochemical stain/fluorochromeconjugated monoclonal antibody results that use analyte specific reagents.All positive and negative controls have been reviewed by the attendingpathologist and are satisfactory. The tests were developed and theirperformance characteristics determined by [facility] d epartleslee.They have not been cleared or approved by the US Food and DrugAdministration. The FDA has determined that such clearance or approval isnot necessary. Name Value Range Interpretation Code Description Data Tamanna rce(s) Supporting Document(s) ID Date Data Source [id number] 08/10/2021 07:55:00 AM EST [facility] ([facility]) Name Value Range Interpretation Code Description Data Tamanna rce(s) Supporting Document(s) Red Blood Count 4.93 10 4.30-6.10 [facility] ([facility]) White Blood Count 6.0 10 4.0-10.0 [facility] ([facility]) Hematocrit 42.8 % 42.0-52.0 [facility] ([facility]) Hemoglobin 14.0 g/dL 13.5-17.5 [facility]) Mean Corpuscular Hemoglobin 28.4 pg 27.0-33.0 [facility] ([facility]) Mean Corpuscular Volume 86.8 fl 80.0-96.0 [facility] ([facility]) Mean Corpuscular HGB Conc 32.7 g/dL 32.0-36.5 [facility] ([facility]) Red Cell Distribution Width 12.9 % 11.5-14.5 [facility] ([facility]) Platelet Count, Automated 168 10 150-450 [facility] ([facility]) Neutrophils % 57.5 % 36.0-66.0 [facility] Lymph % 24.3 % 24.0-44.0 [facility]) Eos % 7.1 % 0.0-3.0 [facility]) [place]land % 9.3 % 2.0-8.0 [facility]) Immature Granulocyte % 0.3 % 0-3.0 [facility] ([facility]) Baso % 1.5 % 0.0-1.0 [facility]) Nucleated Red Blood Cell % 0.0 % 0-0 [facility] ([facility]) Neutrophils # 3.5 10 1.5-8.5 [facility] ([facility]) Highland # 0.6 10 0.0-0.8 [facility]) Lymph # 1.5 10 1.5-5.0 [facility]) Eos # 0.4 10 0.0-0.5 [facility]) Baso # 0.1 10 0.0-0.2 [facility]) ID Date Data Source [id number] 08/17/2021 04:03:00 PM [facility] Cytogenetics ReportName: SYDNEE LYNN N: [id number] Number: [id number] Date: 08/10/2021 00:00Received Date: 08/10/2021 16:11Physician(s): CHESTER EVANS MD VYAS, SHIKHAR G,MDSpecimen(s) ReceivedA: Bone Marrow - Karyotype analysis and FISHClinical [id number] 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 TEST REQUESTED/PERFORMED: Chromosome analysis and fluorescence in situhybridization - FISH InterpretationAn abnormal male chromosome complement with loss of the Y chromosome wasobserved in four cells analyzed. Sixteen cells showed a normal malechromosome complement. The FISH study revealed 1.5% of nuclei positive forIgH-BCL2 [t(14;18)] rearrangement.FISH studies suggest a low frequency for a t(14;18)(q32;q21). This findingis consistent with the abnormality identified on the diagnostic tissue,thus the data supports the continued presence of a very low frequencydisease clone. However, at this level of detection, the anomaly could alsobe an artifact of preparation. The t(14;18)(q32;q21) (IgH-BCL2) is mostcommonly associated with follicular lymphoma (90% of cases), though it isalso seen in diffuse large B-cell lymphoma (20-30% of cases). Loss of theY chromosome in bone marrow is primarily considered an age relatedphenomenon in males. Loss of the Y chromosome is also seen in varioushematological disorders, primarily as a secondary change. Whether theY- chromosome loss identified in this patient is an age-related phenomenon,or is related to a hematological disorder cannot be definitivelydetermined. Correlation with the concurrent hematopathology results([id number]) and other laboratory data is suggested.Electronically Signed By Muriel Kathleen MD, PhD AttendingPathologist 08/17/2021 16:03:02Results and ISCN (2016) NomenclatureChromosome Sdzaeegv04,X,-Y[4]/46,XY[16]Fluorescence in situ Hybridization (FISH)nuc audi (IgH,BCL2)x3(IgH con BCL2x2)[200] DescriptionAn abnormal male chromosome complement with loss of the Y chromosome wasobserved in four cells analyzed. Sixteen cells showed a normal malechromosome complement. The fluorescence in situ hybridization (FISH) studyrevealed 1.5% of nuclei positive for IgH-BCL2 [t(14;18)] rearrangement. Test Data:Specimen Processed: Bone Marrow Chromosome Analysis:MetaphasesCounted Metaphases Analyzed Metaphases Karyotyped Banding Technique BandResolution Culture 20 20 4 GTL 350-500 72 HR DSP30/IL2 stimulated Fluorescence in-situ Hybridization (FISH): 72HR DSP30/IL2 stimulated bonem arrowProbe NormalCut-off Nuclei Analyzed FISH SIGNAL PATTERNS Normal Abnormal NKCS *LSIIgH (14q32.3) SG LSI BCL2 (18q21) SO DCDF 3% 200 2O2% 101G2Y: 1.5% 3.5% Vendor:*[employer] Probes: LSI: Locus Specific Probe; DCDF: Dual Color Dual Fusion Fluorochromes/ Signals: SG: Spectrum Green; SO: Spectrum Concord; Y:Yellow Fusion NKCS: Signals with No Known Clinical SignificanceDisclaimer: Conventional chromosome analysis may not detect submicroscopicstructural chromosome abnormalities as well as aberrations present at lowpercentages. The FISH test was developed and its performance was validatedby the Cytogenetics section of the Department of Clinical Pathology. Thistest has not been cleared or approved by the U.S. Food and DrugAdministration (FDA). The FDA has determined that such approval is notnecessary. However, the procedure is considered investigational, andshould not be used as the sole criteria for diagnosis. Name Value Range Interpretation Code Description Data Tamanna rce(s) Supporting Document(s) ID Date Data Source [id number] 08/05/2021 11:32:00 AM EDT [facility] Name: ILA LYNN : 1950 Age /Sex: 70M Ordering Provider: Fanta Gramajo MD Med Rec #: [id number] Reg Status: DEP REF Room #: Date of Service: 08/04/21 Report Number: [id number] cc:Fanta Gramajo MD Send Report To: [id number] PET/PET/CT SKULL TO MID THIGH Reason for exam: STAGING LUNG CANCER A PET CT was performed following the IV administration of 8.42 mCi of F18 FDG. Imaging from the skull base to the upper thighs was acquired and evaluated. FINDINGS: There is no evidence of any abnormal metabolic activity involving the neck structures. No evidence of any abnormal metabolic activity involving the mediastinum. No evidence of any abnormal activity involving the lungs or axilla. Abdominal viscera unremarkable. There is genitourinary activity identified right more so than left. There is a left hydronephrosis. There is a large area of abnormal metabolic activity identified in the left pelvis. This is most likely having mass effect upon the left ureter causing thehydronephrosis. The mass itself measures 10 x 6 x 10 cm. It encompasses the left common iliac, internal and portions of the internal and external iliac vessels. It is hard to clearly distinguish the mass from the left psoas muscle as well on this noncontrast study. Recommend contrast CT examination. No evidence of any abnormal osseous activity. There is enlarged lymph nodes in the left groin with significant metabolic activity with SUV measuring up to 16. Largest lymph node in the left axilla measuring 5 cm. IMPRESSION: There is a large left lower pelvic mass with high metabolic activity. There is also enlarged left groin lymph nodes with high metabolic activity. No evidence of any abnormal metabolic activity involving the chest. Recommend CT abdomen and pelvis with contrast if not already done so. No prior studies available for comparison today at the [facility]. 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
<content></content>
<content>This addendum is being issued to report additional results:</content>
<content>Positive for IGH- BCL2 [t(14;18)] gene rearrangement.</content>
<content>Negative for BCL6 gene rearrangement.</content>
<content>Negative for MYC gene rearrangement.</content>
<content>These findings are consistent with diagnosis of follicular lymphoma and</content>
<content>diffuse large B-cell lymphoma. There is no evidence of "double-hit" or</content>
<content> "triple-hit" diffuse large B-cell lymphoma. The diagnosis remains</content>
<content>unchanged. Please see the scanned documentation for the full</content>
<content>hematopathology report ([id number]).</content>
<content>07/28/2021829</content>
<content>Addendum Signed____ CHESTER EVANS MD 07/28/2021829</content>
<content> </c ontent>
<content></content>
<content></content>
<content>FINAL DIAGNOSIS</content>
<content></content>
<content>Mass, left groin, needle core biopsy:</content>
<content>* Diffuse large B-cell lymphoma, GC phenotype, with bcl-2 expression</content>
<content>(50%). -4/TR</content>
<content>* Follicular lymphoma, Grade 1-2 (50%).</content>
<content>* FISH testing is pending, and the results will be reported in an</content>
<content>addendum.</content>
<content></content>
<content>Comment:</content>
<content>The DLBL is likely a large cell transformation of follicular lymphoma.</content>
<content>The cells are smaller than usual. Immunohistochemical stains at [facility] show</content>
<content>that the lesional cells are diffusely positive for CD20 and negative for</content>
<content>SOX-10. Ancillary studies at [facility] showed diffuse CD10, CD20, bcl-2</content>
<content>positivity, and 40% positivity for bcl-2. MUM-1 and c-myc were negative.</content>
<content>CD3 and CD5 highlighted scattered T-cells. The proliferation index by</content>
<content>ki-67 IHC was 70%. In the areas of follicular lymphoma, the irregular</content>
<content>follicles maribel with CD10, CD20, bcl-6 and strong bcl-2. CD23 highlights</content>
<content>follicular dendritic meshworks. The proliferation index by ki-67 IHC was</content>
<content>low (<5%). OFELIA-AUDI and cyclin D1 were negative.</content>
<content>07/25/2021813</content>
<content> </content>
<content>CLINICAL DIAGNOSIS</content>
<content></content>
<content>Mass left groin</content>
<content>07/14/20211322</content>
<content></content>
<content>GROSS DIAGNOSIS</content>
<content></content>
<content>Received in formalin labeled "left groin mass biopsy" and consists of</content>
<content>multiple soft christine needle core shaped fragments measuring 1.2 x 1.0 x 0.2</content>
<content>cm. in aggregate. All in one.</content>
<content>-SV</content>
<content>07/14/20211322</cont ent>
<content></content>
<content>PRELIMINARY DIAGNOSIS</content>
<content></content>
<content>07/25/2021813</content>
<content></content>
<content>Signed CHESTER EVANS MD 07/18/2021 0817 (Prelim)</content>
<content>Signed CHESTER EVANS MD 07/25/2021813</content>
<content></content> ID Date Data Source [id number] 07/24/2021 04:59:00 PM EDT [facility] Hematopathology Report See Addendum Alonso wName: JESUS LYNN: [id number] Number: [id number] Date: 07/13/2021 00:00Received Date: 07/18/2021 13:43Physician(s): CHESTER EVANS MD VYAS, SHIKHAR G,BLUpecimen(s) ReceivedA: Slides received for consultation, KB; received 5 slides and 1 block ofleft groin mass, labeled [id number], collected on 07/13/21, from [facility], in consultation with Dr. Segoviaical HistoryLymphadenopathyTEST REQUESTED/PERFORMED: Hematopathology Consultation DiagnosisLeft groin lymph node, core biopsy: 1. Diffuse large B-cell lymphoma, GC phenotype, with bcl-2 expression(50%). 2. Follicular lymphoma, Grade 1-2 (50%).The DLBL is likely a large cell transformation of follicular lymphoma. Thecells are smaller than usual. FISH is pending. Electronically Signed By Hayde Albert M.D. Attending Pathologist 07/24/2021 16:59:01Addendum 07/27/2021 Anatomic Molecular Pathology Reports [id number], [id number], and [id number] the following: FISH study shows no evidence of BCL6 generearrangement, no evidence of MYC gene rearrangement, but positive resultfor IGH-BCL2 gene rearrangement.These findings are consistent with diagnosis of follicular lymphoma anddiffuse large B-cell lymphoma. There is NO evidence of "double-hit" or"triple-hit" diffuse large B- cell lymphoma. Diagnosis remains unchanged. Addendum Electronically Signed By: MARYSOL PULIDO M.D. 07/27/2021 11:14 Microscopic DescriptionCores of groin lymph node show abnormal, focally diffuse and focallynodular, lymphoid infiltrates. The diffuse areas (50%) show monotonousinfiltrates of small to medium-sized lymphoid cells with slightlyirregular nuclei, bland chromatin, and 0-3 small nucleoli. Many mitosesare seen (33/10 HPF). In other cores (50%), there are vaguely definedfollicles of small cleaved cells. No large cells are present. No mitoses,tingible body macrophages, polarization, or mantle zones are seen.The diffuse infiltrates maribel diffusely with CD10, CD20, bcl-2 and are alsopositive for bcl-6 (40% of cells). MUM-1 and c-myc are negative throughoutthe sample. CD23 is negative for follicular dendritic meshworks. CD3 andCD5 maribel scattered T cells. The Ki-67 proliferation rate is 70%. In thecore with follicular areas, the irregular follicles maribel with CD10, CD20,bcl-6 and strong bcl-2. CD23 highlights follicular dendritic meshworks.The Ki-67 proliferation rate is low (<5%). Surrounding the follicles are Tcells marking with CD3 and CD5 and fewer B cells marking with CD20. Othernegative stains: SOX-10, OFELIA-AUDI, cyclin D1.Stains received for interpretation from outside institution: CD20, SOX- 10Stains performed at [facility]: CD3, CD5, CD10, CD23,bcl-2, bcl-6, Ki-67, cyclin D1, MUM-1, c-myc, OFELIA-AUDI. ProceduresThis report may include one or more immunohistochemical stain/fluorochromeconjugated monoclonal antibody results that use analyte specific reagents.All positive and negative controls have been reviewed by the attendingpathologist and are satisfactory. The tests were developed and theirperformance characteristics determined by [facility] Pathology department.They have not been cleared or approved by the US Food and DrugAdministration. The FDA has determined that such clearance or approval isnot necessary. Name Value Range Interpretation Code Description Data Tamanna rce(s) Supporting Document(s) ID Date Data Source [id number] 07/26/2021 03:17:00 PM [facility] Anatomic Molecular Pathology ReportName: ILA LYNNROYCE: [id number] Number: [id number] Date: 07/13/2021 00:00Received Date: 07/21/2021 13:33Physician(s): CHESTER EVANS MD VYAS, SHIKHAR G,MDSpecimen(s) ReceivedA: Slides received for Consultation, [id number] A Formalin Block, BCL6 byFISHDiagnosisTEST PANEL BY FISH (fluorescence in situ hybridization): 1. BCL6 gene (3q27) break-apart rearrangement. RESULTS: 1. Percent cells with BCL6 gene break-apart rearrangement is 2%. ISCN - nuc audi (5'BCL6,3'BCL6)x1~3(5'BCL6 con 3'BCL6 x1~3)[49/50]INTERPRETATION: NEGATIVE FOR BCL6 GENE REARRANGEMENT.10% is used as cut-off value for MYC and BCL6 gene rearrangements while0.1 is for IGH-BCL2. d 10% or d0.1 is positive while c 10% or < 0.1 isnegative. MYC gene rearrangement, including "double-hit" MYC and BCL2/JBW7rnvjshayiliice, can be identified in approximately 10% of diffuse largeB-cell lymphoma, and is associated with aggressive clinical behavior andpoor therapeutic response.kg/jajElectronically Signed By Fabiana Mercado M.D. Attending Pathologist 07/26/2021 15:17:13Reported at [facility] [id number] [place] [address]. Gross DescriptionMETHODOLOGY:Interphase FISH is performed on paraffin embedded lymphoma tissueutilizing dual color break-apart probes for MYC and BCL6, and dual colordual fusion probes for IGH-BCL2, analyte specific reagents of [employer]. Hybridizations are carried out as per the stated protocolwith no significant background or random probe hybridization. A total of40 -100 interphase tumor nuclei are examined by one or two scorers,depending on initial evaluation. Less than 10% tumor cells in samples maynot be detected by the assay. Test development and their performance characteristics were determined bythe [facility], and have beenauthorized for clinical use by [facility]. Thetests have not been cleared or approved by the U.S. Food and DrugAdministration. The analyte specific reagents used in this assay do notrequire FDA approval. REFERENCES: 1. Joe N, Oscar A, Tatiana Florian, et al. Prognostic significance of MYC,BCL2, and BCL6 rearrangements in patients with diffuse large B-celllymphoma treated with cyclophosphamide, doxorubicin, vincristine, andprednisone plus rituximab. Cancer 2012;118:7423-4349.2. [place] Y, Abby M, Shira P, et al. Double hit lymphoma: the [facility] clinical experience. [place] Journal of Pbiufgmchfo3323;166:321124.3. Yunier Harris, Ayden LARSON, Felipe Simpson, et al. Rearrangements of MYC genefacilitate risk stratification in diffuse large B-cell lymphoma patientstreated with rituximab- [facility]. Modern Pathology 2014;27:918340.This report may include one or more immunohistochemical stain results thatuse analyte specific reagents. All positive and negative controls havebeen reviewed by the attending pathologist and are satisfactory. The testswere developed and their performance characteristics determined by [facility] Pathology department. They have not been cleared or approved by the USFood and Drug Administration. The FDA has determined that such clearanceor approval is not necessary. Name Value Range Interpretation Code Description Data Tamanna rce(s) Supporting Document(s) ID Date Data Source [id number] 07/26/2021 01:43:00 PM [facility] Anatomic Molecular Pathology ReportName: JESUS LYNN: [id number] Number: [id number] Date: 07/13/2021 00:00Received Date: 07/21/2021 13:39Physician(s): CHESTER EVANS MD VYAS, SHIKHAR G,MDSpecimen(s) ReceivedA: Slides received for consultation, [id number] A Formalin Block, BCL2 byFISHDiagnosisTEST: IGH-BCL2 [t(14;18)(q32;q21)] gene fusion rearrangement. RESULT: Ratio of IGH-BCL2 gene fusion rearrangement is 0.22International System for Cytogenetic Nomenclature: (IGH,BCL2)x1~4(IGHcon BCL2x1~4)[29/40] INTERPRETATION:POSITIVE FOR IGH-BCL2 GENE REARRANGEMENT. 0.1 is used as cut-off value for IGH-BCL2 gene rearrangement. d0.1 ispositive while < 0.1 is negative. BCL2 rearrangements can be identified inapproximately 90% of low-grade follicular lymphomas, and is much lesscommonly seen in grade 3B follicular lymphoma. Frequency of BCL2 generearrangements range from less than 5% to 40% of diffuse large B-celllymphomas depending on the subtype. deb/esther Electronically Signed By Fabiana Mercado M.D. Attending Pathologist 07/26/2021 13:43:13Reported at [facility] [id number] [place] [address]. Gross DescriptionMETHODOLOGY:In terphase FISH is performed on paraffin embedded lymphoma tissueutilizing dual color dual fusion probes for IGH-BCL2, analyte specificreagents of [employer] Hybridizations are carried out as perthe stated protocol with no significant background or random probehybridization. A total of 40 -100 interphase tumor nuclei are examined byone or two scorers, depending on initial evaluation. Less than 10% tumorcells in samples may not be detected by the assay. Test development and their performance characteristics were determined bythe [facility], and have beenauthorized for clinical use by [facility]. Thetests have not been cleared or approved by the U.S. Food and DrugAdministration. The analyte specific reagents used in this assay do notrequire FDA approval. REFERENCES: 1. Joe N, Oscar Harris, Tatiana Florian, et al. Prognostic significance of MYC,BCL2, and BCL6 rearrangements in patients with diffuse large B-celllymphoma treated with cyclophosphamide, doxorubicin, vincristine, andprednisone plus rituximab. Cancer 2012;118:0056-3378.2. [place]oacano Y, Abby M, Shira P, et al. Double hit lymphoma: the [facility] clinical experience. [place] Journal of Ugpwvzhhnuv0594;166:945661.3. Yunier Harris, Ayden LARSON, Felipe Simpson, et al. Rearrangements of MYC genefacilitate risk stratification in diffuse large B-cell lymphoma patientstreated with rituximab-[facility]. Modern Pathology 2014;27:322524.This report may include one or more immunohistochemical stain results thatuse analyte specific reagents. All positive and negative controls h avebeen reviewed by the attending pathologist and are satisfactory. The testswere developed and their performance characteristics determined by [facility] Pathology department. They have not been cleared or approved by the USFood and Drug Administration. The FDA has determined that such clearanceor approval is not necessary. Name Value Range Interpretation Code Description Data Tamanna rce(s) Supporting Document(s) ID Date Data Source [id number] 07/26/2021 01:42:00 PM [facility] Anatomic Molecular Pathology ReportName: LEAHJESUS: [id number] Number: [id number] Date: 07/13/2021 00:00Received Date: 07/21/2021 13:36Physician(s): CHESTER EVANS MD VYAS, SHIKHAR G,BLUpecimen(s) ReceivedA: Slides recived for consultation, [id number] A Formalin Block, Myc byFISHDiagnosisTEST PANEL BY FISH (fluorescence in situ hybridization): 1. MYC gene (8q24) break-apart rearrangement. RESULTS: 1. Percent cells with MYC gene break-apart rearrangement is 2%. ISCN - nuc audi (5'MYC,3'MYC)x1~4(5'MYC con 3'MYC x1~4)[49/50]INTERPRETATION: NEGATIVE FOR MYC GENE REARRANGEMENT.10% is used as cut-off value for MYC and BCL6 gene rearrangements while0.1 is for IGH-BCL2. d 10% or d0.1 is positive while c 10% or < 0.1 isnegative. MYC gene rearrangement, including "double-hit" MYC and BCL2/UEP6mohqrmndptzloo, can be identified in approximately 10% of diffuse largeB-cell lymphoma, and is associated with aggressive clinical behavior andpoor therapeutic response.kg/jajElectronically Signed By Fabiana Mercado M.D. Attending Pathologist 07/26/2021 13:42:32Reported at [facility] [id number] [place] [address]. Lamberto rangel DescriptionMETHODOLOGY:Interphase FISH is performed on paraffin embedded lymphoma tissueutilizing dual color break-apart probes for MYC and BCL6, and dual colordual fusion probes for IGH-BCL2, analyte specific reagents of [employer]. Hybridizations are carried out as per the stated protocolwith no significant background or random probe hybridization. A total of40 -100 interphase tumor nuclei are examined by one or two scorers,depending on initial evaluation. Less than 10% tumor cells in samples maynot be detected by the assay. Test development and their performance characteristics were determined bythe [facility], and have beenauthorized for clinical use by [facility]. Thetests have not been cleared or approved by the U.S. Food and DrugAdministration. The analyte specific reagents used in this assay do notrequire FDA approval. REFERENCES: 1. Joe N, Oscar A, Tatiana Florian, et al. Prognostic significance of MYC,BCL2, and BCL6 rearrangements in patients with diffuse large B-celllymphoma treated with cyclophosphamide, doxorubicin, vincristine, andprednisone plus rituximab. Cancer 2012;118:8671-7652.2. [place]ano Y, Abby M, Shira P, et al. Double hit lymphoma: the [facility] clinical experience. [place] Journal of Mgxeufsvwvx3835;166:129293.3. Yunier Harris, Ayden LARSON, Felipe Simpson, et al. Rearrangements of MYC genefacilitate risk stratification in diffuse large B-cell lymphoma patientstreated with rituximab- [facility]. Modern Pathology 2014;27:286967. This report may include one or more immunohistochemical stain results thatuse analyte specific reagents. All positive and negative controls havebeen reviewed by the attending pathologist and are satisfactory. The testswere developed and their performance charact eristics determined by [facility] Pathology department. They have not been cleared or approved by the USFood and Drug Administration. The FDA has determined that such clearanceor approval is not necessary. Name Value Range Interpretation Code Description Data Tamanna rce(s) Supporting Document(s) Procedure Social History No Information Vital Signs ID Date Data Source K Name Value Range Interpretation Code Description Data Source(s) Body mass index (BMI) [Ratio] 0.0 kg/m2 0.0 kg /m2 [facility] ([facility]) Systolic blood pressure 118 mm[Hg] 118 mm[Hg] [facility] ([facility]) Diastolic blood pressure 68 mm[Hg] 68 mm[Hg] [facility] ([facility]) Heart rate 78 /min 78 /min [facility] ([facility]) Body height 6475 [in_i] 6475 [in_i] [facility] ([facility]) 539'7" Body weight 199.12 [lb_av] 199.12 [lb_av] [facility] ([facility]) Body weight 91.627 kg 91.627 kg [facility] ([facility], ) Body surface area Derived from formula 2.01 m2 2.01 m2 [facility] Body height 66 [in_i] 66 [in_i] [facility] ([facility]) 5'6" Body weight 202.00 [lb_av] 202.00 [lb_av] [facility] ([facility]) Body mass index (BMI) [Ratio] 32.6 kg/m2 32.6 k g/m2 [facility] ([facility]) [place] body weight 142 [lb_av] 142 [lb_av] [facility] ([facility]) Systolic blood pressure 156 mm[Hg] 156 mm[Hg] [facility] ([facility]) Diastolic blood pressure 86 mm[Hg] 86 mm[Hg] [facility] ([facility]) Body temperature 97.5 [degF] 97.5 [degF] [facility] ([facility]) Body temperature 98.8 [degF] 98.8 [degF] [facility] ([facility]) Systolic blood pressure 152 mm[Hg] 152 mm[Hg] [facility] Diastolic blood pressure 81 mm[Hg] 81 mm[Hg] [facility] ([facility]) Heart rate 77 /min 77 /min [facility] ([facility]) Body height 66 [in_i] 66 [in_i] [facility] ([facility]) 5'6" Body weight 200.00 [lb_av] 200.00 [lb_av] [facility] ([facility]) Body mass index (BMI) [Ratio] 32.3 kg/m2 32.3 k g/m2 [facility] ([facility]) [place] body weight 142 [lb_av] 142 [lb_av] [facility] ([facility]) Body weight 90.720 kg 90.720 kg [facility] ([facility]) Body surface area Derived from formula 2.00 m2 2.00 m2 [facility] ([facility]) Diastolic blood pressure 90 mm[Hg] 90 mm[Hg] [facility] ([facility]) Body height 66 [in_i] 66 [in_i] [facility] ([facility]) Body mass index (BMI) [Ratio] 32 kg/m2 32 kg/ m2 [facility] ([facility]) Systolic blood pressure 151 mm[Hg] 151 mm[Hg] [facility] ([facility]) Body weight 3174 [oz_av] 3174 [oz_av] [facility] ([facility])
--- OUTSIDE RECORDS SUMMARY | 2021-08-18 13:43 | CCD | Continuity of Care Document ---
Author Author MARCO BARNES, Michel ROYAL [facility] Unknown Address [address] [place] [address] Phone [phone] Care Team Providers Care Forcer Maker Name Role Phone ChristianMau AUTM [phone] Problems Active Problems Provider Date Essential hypertension [...] lb BMI (Body Mass Index) 32.6 kg/m2 [place] Body Weight 142 lb Weight 91.627 kg BSA (Body Surface Area) 2.01 m2 07/13/2021 3:31pm BP Systolic 152 mmHg BP Diastolic 81 mmHg Heart Rate 77 /min Body Temperature 98.8 F Height 66 inches 5'6" Weight 200.00 lb BMI (Body Mass Index) 32.3 kg/m2 [place] Body Weight 142 lb Weight 90.720 kg BSA (Body Surface Area) 2.00 m2 Results Test Acquired Date Facility Test Result H/L Range Note Laboratory test finding 07/13/2021 [facility] [address] [place] [address] [phone] Pathology Request For Service <pending> Procedures Date Code Description Status 07/13/2021 82043 Office/Outpatient New Low MDM 30 -44 Minutes [...] MASS LEFT INGUINAL REGION Scheduled 07/13/2021 [address] [facility] [facility] [address] [place] [address] [phone]
--- OUTSIDE RECORDS SUMMARY | 2021-08-18 13:43 | CCD ---
Author Organization Unknown Address [address] [place] [address] Phone [phone] Care Team Providers Care Airline Reservationist Name Role Phone KelsiDeboraYasemin Unavailable Unavailable Allergies Code Code System Name Reaction Severity Status Onset NKDA Notes: some type of medication that he d oesn't remember but that was back in the 90s Medications Name Status Start Date Stop Date Eliquis 5 mg tablet Take 1 tablet twice a day by oral route for 30 days. Active Not available lisinopril 20 mg tablet Take 1 tablet every day by oral route. Active Not available omeprazole 20 mg capsule,delayed release Take 1 capsule every day by oral route. Active Not available simvastatin 20 mg tablet Take 1 tablet every day by oral route. Active Not available Problems Name Status Onset Date Source Hyperlipidemia Active 07/06/2021 Hypertensive Disorder Active 07/06/2021 Gastroesophageal Reflux Disease without Esophagitis Active 07/06/2021 History of Malignant Neoplasm of Skin Active 07/06/2021 Procedures Date Name Performed by 07/05/2021 US, Duplex, Venous, Lower Extremity [facility] [address] [place] [address] (Work Place) Notes: left orchiectomy (not clear on si de)-no malignancy, skin cancer on back Results Lab Results None recorded. Past Encounters 07/05/2021 Pain in Lower Limb; Hypertensive Disorder Mau Gonzales, RPA-C: [address] [facility], [place] [address], Ph. Social History None recorded. Vaccine List Vaccine Type COVID-19, mRNA, LNP-S, PF, 30 mcg/0.3 mL dose 12/10/2020 12/31/2020 06/30/2021 Plan of Care Reminders Provider Appointments None recorded. Lab None recorded. Referral None recorded. Procedures None recorded. Surgeries None recorded. Imaging None recorded. Vitals Height Weight BMI Blood Pressure 66 in 198 lbs 6 oz 32 kg/m2 151/90 mm[Hg]
--- OUTSIDE RECORDS SUMMARY | 2021-08-18 13:43 | CCD | Continuity of Care Document ---
Author Author MARCO BARNES, Michel ROYAL [facility] [place] Unknown Address [address] [place] [address] Phone [phone] Care Team Providers Care Stumper Feller Name Role Phone ChristianMau AUTM [phone] Problems Active Problems Provider Date Essential hypertension [...] lb BMI (Body Mass Index) 32.6 kg/m2 [place] Body Weight 142 lb Weight 91.627 kg BSA (Body Surface Area) 2.01 m2 07/13/2021 3:31pm BP Systolic 152 mmHg BP Diastolic 81 mmHg Heart Rate 77 /min Body Temperature 98.8 F Height 66 inches 5'6" Weight 200.00 lb BMI (Body Mass Index) 32.3 kg/m2 [place] Body Weight 142 lb Weight 90.720 kg BSA (Body Surface Area) 2.00 m2 Results Test Acquired Date Facility Test Result H/L Range Note Laboratory test finding 07/13/2021 [facility] [address] [place] [address] [phone] Pathology Request For Service <pending> Procedures Date Code Description Status 07/13/2021 [address] Office/Outpatient New Low MDM 30 -44 Minutes [...] MASS LEFT INGUINAL REGION Scheduled 07/13/2021 [address] [facility] [address] [place] [address] [phone]
[2021-08-18 14:30] VITALS: BP 156/77
[2021-08-18] MEDS: NS 1,000 ML IV SCH (14:50)
--- NOTE | 2021-08-18 16:09 | REP ---
INDICATION: obstructive uropathy hx of diffuce b-cell COMPARISON: None TECHNIQUE: Axial noncontrast images from the lung bases to the pubic symphysis with coronal and sagittal reformations. This CT examination was performed using the following dose reduction techniques: Automated exposure control, adjustment of mA and/or kv according to the patient's size, and use of iterative reconstruction technique. FINDINGS: There is a large soft tissue mass in the left hemipelvis measuring roughly 10.5 x 8.5 x 10.0 cm which is inseparable from the left ileo psoas muscle as well as the left iliac vessels most compatible with large concomitant adenopathy. Lesion causes associated distal ureteral obstruction and grade 3 hydroureteronephrosis which is likely chronic based on the mildly atrophic appearance to the left kidney. Further significant adenopathy involving the left groin is appreciated including lymph node measuring up to 4.7 cm diameter. Findings are consistent with the patient's history of lymphoma. Liver, spleen, pancreas, gallbladder, bilateral adrenal glands and right kidney are essentially normal. The enteric system is without obstruction or acute inflammatory process. Subtle central mesenteric fat stranding and prominent lymph nodes to the mesentery are also identified measuring up to approximately 13 mm. Further evaluation of the pelvis demonstrates normal bladder and prostatomegaly. No ascites. No free air. Musculoskeletal structures are intact. Lung bases are clear. IMPRESSION: Large conglomerate adenopathy/mass involving the left hemipelvis inseparable from the left ileo psoas muscle as well as the left iliac artery and vein and causing presumed chronic moderate left hydroureteronephrosis. Further enlarged lymph nodes in the left groin and mildly prominent lymph nodes in the mesentery noted as well. <Electronically signed by Chet Win > 08/18/21 [id number]
--- NOTE | 2021-08-18 18:05 | HPEPDOC ---
[facility] Medical History & Physical Date of Admission Aug 18, 2021 Date of Service: Aug 18, 2021 History and Physical CHIEF COMPLAINT: " Sent by Dr. Gramajo" HISTORY OF PRESENT ILLNESS: 70-year-old male with a past medical history of hypertension, hyperlipidemia, DVT, GERD and recently diagnosed diffuse large B-cell lymphoma was sent by his primary oncologist office for further evaluation of concerns of obstructive uropathy. At the time of examination patient had no complaints. He denied headache, chest pain, shortness of breath, abdominal pain, nausea, vomiting, pounds with urination and bowel movements. He denied hematuria, back pain. He denied incontinence of urine or bowels. He denied fever, and chills. Patient was sent from Dr. Gramajo's office for concerns evaluation by a urologist for obstructive uropathy that was appreciated on a PET CT scan done, and possible acute kidney injury. PAST MEDICAL HISTORY: As mentioned above PAST SURGICAL HISTORY: Tonsillectomy 1957. Vasectomy 1974. Hemorrhoidectomy 1978. Orchiectomy 1982. SOCIAL HISTORY: Denies smoking, drinking, use of recreational drugs. FAMILY HISTORY: Father: Gastric cancer Sister: Lung cancer ALLERGIES: Please see below. REVIEW OF SYSTEMS: 10 point review of system was negative except for what is noted in the HPI HOME MEDICATIONS: Please see below. PHYSICAL EXAMINATION: VITAL SIGNS: Please see below General: Lying in bed, no acute distress Head/Neck/Throat: Trachea midline, mucous membranes moist Eyes: Sclera anicteric, PERRLA Thorax: Normal respiratory effort on room air, lungs clear to auscultation bilaterally, no wheezes/rales/rhonchi Cardiovascular: Normal rate, regular rhythm, normal S1, S2; no S3, S4, rubs/gallops/murmurs Abdomen: Bowel sounds present, soft/nontender/nondistended Genitourinary: No CVA tenderness, no Simmons in place Musculoskeletal: Moving all extremities, no edema Skin: Warm, dry Neurologic: AAOx3, speech fluent and goal-directed, no focal deficits, grossly intact LABORATORY DATA: See below. IMAGING: CT ABD & PELVIS W/O CONTRAST FINDINGS: There is a large soft tissue mass in the left hemipelvis measuring roughly 10.5 x 8.5 x 10.0 cm which is inseparable from the left ileo psoas muscle as well as the left iliac vessels most compatible with large concomitant adenopathy. Lesion causes associated distal ureteral obstruction and grade 3 hydroureteronephrosis which is likely chronic based on the mildly atrophic appearance to the left kidney. Further significant adenopathy involving the left groin is appreciated including lymph node measuring up to 4.7 cm diameter. Findings are consistent with the patient's history of lymphoma. Liver, spleen, pancreas, gallbladder, bilateral adrenal glands and right kidney are essentially normal. The enteric system is without obstruction or acute inflammatory process. Subtle central mesenteric fat stranding and prominent lymph nodes to the mesentery are also identified measuring up to approximately 13 mm. Further evaluation of the pelvis demonstrates normal bladder and prostatomegaly. No ascites. No free air. Musculoskeletal structures are intact. Lung bases are clear. IMPRESSION: Large conglomerate adenopathy/mass involving the left hemipelvis inseparable from the left ileo psoas muscle as well as the left iliac artery and vein and causing presumed chronic moderate left hydroureteronephrosis. Further enlarged lymph nodes in the left groin and mildly prominent lymph nodes in the mesentery noted as well. MICROBIOLOGY: Please see below. ASSESSMENT/PLAN: #Left hydroureteronephrosis -Appreciated possibly a chronic finding on CT scan. He has no urinary complaints at this time and denies hematuria. Urology has been consulted for further evaluation. #Chronic kidney disease stage III -Creatinine appears to be at baseline, in June/2021 it was 1.9-2. We will continue to monitor creatinine at this time. Avoid nephrotoxic medications. #Diffuse B cell lymphoma -Plan is for chemotherapy on 08/22/2021 to minimize tumor lysis syndrome risks he will be started on allopurinol. #Hypertension -Considering creatinine is at baseline, will continue with lisinopril #GERD -Continue with omeprazole #Hyperlipidemia -Continue with simvastatin #History of DVT -He is on Eliquis 5 mg twice daily at home, we will switch this to Lovenox therapeutic dose during hospitalization following his procedure. #DVT prophylaxis -SCDs for now for anticipation of possible procedure. Following procedure he will be started on therapeutic dose of Lovenox. Home Medications Scheduled Allopurinol (Allopurinol) 100 Mg Tablet, 2 TAB PO BID Apixaban (Eliquis) 5 Mg Tablet, 1 TAB PO BID Lisinopril (Lisinopril) 20 Mg Tablet, 1 TAB PO DAILY Omeprazole (Omeprazole) 20 Mg Capsule.dr, 1 TAB PO DAILY Ondansetron HCl (Ondansetron HCl) 8 Mg Tablet, 8 MG PO Q12H Prednisone (Prednisone) 50 Mg Tablet, 100 MG PO DAILY Take 2 tablets daily starting with day of chemotherapy for 5 days (days 1-5) Simvastatin (Simvastatin) 20 Mg Tablet, TAB PO DAILY Scheduled PRN Oxycodone HCl/Acetaminophen (Percocet 5-325 mg Tablet) 1 Each Tablet, 1 TAB PO Q4HP PRN for PAIN Prochlorperazine Maleate (Prochlorperazine Maleate) 10 Mg Tablet, 10 MG PO Q6H PRN for NAUSEA OR VOMITING Allergies Coded Allergies: No Known Allergies (Verified Allergy, Unknown, 07/05/21) A-FIB/CHADSVASC A-FIB History Current/History of A-Fib/PAF?: No ANDREW LEE M.D. Aug 18, 2021 14:06
[2021-08-18] MEDS ORDERED: [UNRECOGNIZED DRUG - CODE] PO (19:26)
[2021-08-18] MEDS ORDERED: LOPE1CAP5 PO (19:26)
[2021-08-18] MEDS ORDERED: HOME MED LIST COMPLETE! XX SCH (19:30)
[2021-08-18 20:08] VITALS: BP 151/80
[2021-08-18] MEDS ORDERED: SIMVASTATIN 20 MG TAB PO SCH (21:00)
[2021-08-18 21:30] VITALS: BP 148/84
[2021-08-18] MEDS: allopurinoL 100 MG TAB PO SCH (21:30)
[2021-08-19] MEDS: NS 1,000 ML IV SCH ×2 (02:31→12:27)
[2021-08-19 05:59] VITALS: BP 150/81
[2021-08-19 06:11] LABS: HEMATOCRIT 39.8 % (42.0-52.0); HEMOGLOBIN 13.2 g/dl (13.5-17.5); MEAN CORPUSCULAR HEMOGLOBIN 28.4 pg (27.0-33.0); MEAN CORPUSCULAR HGB CONC 33.2 g/dl (32.0-36.5); MEAN CORPUSCULAR VOLUME 85.8 fl (80.0-96.0); PLATELET COUNT, AUTOMATED 187 10^3/uL (150-450); RED BLOOD COUNT 4.64 10^6/uL (4.30-6.10); WHITE BLOOD COUNT 6.2 10^3/uL (4.0-10.0)
[2021-08-19 06:36] LABS: CALCIUM LEVEL 8.9 MG/DL (8.8-10.2); CREATININE FOR GFR 1.66 MG/DL (0.70-1.30); GLOMERULAR FILTRATION RATE 43.8 (>42); MAGNESIUM LEVEL 1.9 MG/DL (1.8-2.4); PHOSPHORUS LEVEL 3.5 MG/DL (2.5-4.9); POTASSIUM SERUM 4.7 MEQ/L (3.5-5.1)
[2021-08-19] MEDS: allopurinoL 100 MG TAB PO SCH (08:37)
[2021-08-19 08:41] VITALS: BP 165/87
[2021-08-19] MEDS ORDERED: OMEPRAZOLE 20 MG CAP PO SCH (09:00)
--- NOTE | 2021-08-19 12:11 | IPNPDOC ---
Text Note Date of Service The patient was seen on 08/19/21. VS,Fishbone, I+O VS, Fishbone, I+O Laboratory Tests 08/19/21 05:47 Vital Signs Date Time Temp Pulse Resp B/P (MAP) Pulse Ox O2 Delivery O2 Flow Rate FiO2 08/19/21 08:41 165/87 08/19/21 05:59 97.8 76 18 97 Room Air I&O- Last 24 Hours up to 6 AM 08/19/21 06:00 Intake Total 1800 ml Output Total 1600 ml Balance 200 ml ANDREW LEE M.D. Aug 19, 2021 12:11
[2021-08-19] MEDS ORDERED: PERCOCET 5MG/325MG TAB PO ONE (12:30)
[2021-08-19] MEDS ORDERED: PERC2.5T PO (13:37)
[2021-08-19] MEDS ORDERED: ALLO10TA PO (13:37)
--- NOTE | 2021-08-19 13:37 | SMCUROLCON ---
Urology Consultation General Date of Consultation 08/19/21 Reason For Consultation This patient is seen for left hydronephrosis History of Present Illness From hospitalist note: "70-year-old male with a past medical history of hypertension, hyperlipidemia, DVT, GERD and recently diagnosed diffuse large B-cell lymphoma was sent by his primary oncologist office for further evaluation of concerns of obstructive uropathy. At the time of examination patient had no complaints. He denied headache, chest pain, shortness of breath, abdominal pain, nausea, vomiting, pounds with urination and bowel movements. He denied hematuria, back pain. He denied incontinence of urine or bowels. He denied fever, and chills. Patient was sent from Dr. Gramajo's office for concerns evaluation by a urologist for obstructive uropathy that was appreciated on a PET CT scan done, and possible acute kidney injury." On discussion with urology pt does report some diffuse left sided body pain but denies any flank pain or CVA tenderness. Past Medical History Medical History hypertension, hyperlipidemia, DVT, GERD and recently diagnosed diffuse large B- cell lymphoma Medications Current Medications Current Medications Medications (Trade) Dose Ordered Sig/Zulma Route PRN Reason Start Time Stop Time Status Last Admin Dose Admin Allopurinol (Zyloprim) 200 mg BID PO 08/18/21 21:00 08/19/21 08:37 Home Med (Home Med List Complete!) ASDIRECTED XX 08/18/21 19:30 08/18/21 19:44 DC Lisinopril (Prinivil) 20 mg DAILY PO 08/19/21 09:00 08/19/21 08:41 Omeprazole (PriLOSEC) 20 mg DAILY PO 08/19/21 09:00 08/19/21 08:37 Simvastatin (Zocor) 20 mg QPM PO 08/18/21 21:00 08/18/21 21:30 Sodium Chloride 1,000 ml @ 100 mls/hr Q10H IV 08/18/21 14:50 08/19/21 14:49 08/19/21 12:27 Allergies Allergies: Coded Allergies: No Known Allergies (Verified Allergy, Unknown, 07/05/21) Physical Examination Male Exam No CVA tenderness Vital Signs/I&O Vital Signs Date Time Temp Pulse Resp B/P (MAP) Pulse Ox O2 Delivery O2 Flow Rate FiO2 08/19/21 13:15 18 08/19/21 08:41 165/87 08/19/21 05:59 97.8 76 97 Room Air I&O- Last 24 Hours up to 6 AM 08/19/21 06:00 Intake Total 1800 ml Output Total 1600 ml Balance 200 ml Laboratory Data 24H Labs Laboratory Tests 2 08/18/21 16:17: Coronavirus (COVID-19)(PCR) NEGATIVE 08/19/21 05:47: Nucleated Red Blood Cells % (auto) 0.0, Anion Gap 6L, Glomerular Filtration Rate 43.8, Calcium Level 8.9, Phosphorus Level 3.5, Magnesium Level 1.9 CBC/BMP Laboratory Tests 08/19/21 05:47 Assessment Mild left hydroureteronephrosis: -new imaging reviewed by urology and demonstrates mild left hydroureteronephrosi s. -Pt has no pain or tenderness to suggest high grade obstruction. -Creatinine level is currently lower than prior levels on record. These findings are all suggestive against any current high grade ureteral obstruction. Any current extrinsic ureteral compression by pelvic mass is likely to decrease in the coming weeks as patient gets chemotherapy and tumor likely to decrease in size. These findings and rationale were discussed with the patient and counseled him on risks / benefits of ureteral stent placement at this time. Based on this discussion we agreed against stent placement for now. -Recommend to monitor degree of left hydronephrosis on imaging for oncologic f/u. If degree of hydronephrosis increases significantly, or if patient develops symptoms consistent with high grade ureteral obstruction, then will plan to reconsider stent placement at that time. ALEJANDRO HOSKINS MD Aug 19, 2021 13:37
--- NOTE | 2021-08-19 13:42 | DS.PDOC ---
Discharge Summary General Date of Admission Aug 18, 2021 at 13:31 Date of Discharge 08/19/21 Discharge Summary DISCHARGE DIAGNOSES: 1. Obstructive uropathy 2. Chronic kidney disease COMPLICATIONS/CHIEF COMPLAINT: Obstructive Uropathy. HOSPITAL COURSE: Mr. Florentino is a 70-year-old male with a past medical history of hypertension, hyperlipidemia, DVT, GERD and recently diagnosed diffuse large B-cell lymphoma was sent by his primary oncologist office for evaluation of concerns for obstructive uropathy. A CT scan of the abdomen and pelvis was done and evaluated by urology team and it was felt no acute intervention/stents were required at this time. Patient's primary oncologist, Dr. Gramajo was made aware. Therefore patient is being discharged. There was also concern for acute kidney injury. However, his creatinine was at baseline. He was asked to follow-up with his primary care physician for ongoing monitoring of his renal function. Of note, patient is aware of all his CT scan findings. He was encouraged to keep records of imaging finding for follow-ups that may be required. DISCHARGE MEDICATIONS: Please see below. ALLERGIES: Please see below. PHYSICAL EXAMINATION ON DISCHARGE: VITAL SIGNS: Please see below. General: Lying in bed, no acute distress Head/Neck/Throat: Trachea midline, mucous membranes moist Eyes: Sclera anicteric, PERRLA Thorax: Normal respiratory effort on room air, lungs clear to auscultation bilaterally, no wheezes/rales/rhonchi Cardiovascular: Normal rate, regular rhythm, normal S1, S2; no S3, S4, rubs/gallops/murmurs Abdomen: Bowel sounds present, soft/nontender/nondistended Genitourinary: No CVA tenderness, no Simmons in place Musculoskeletal: Moving all extremities, no edema Skin: Left inguinal lymph node is palpable Neurologic: AAOx3, speech fluent and goal-directed, no focal deficits, grossly intact LABORATORY DATA: Please see below. IMAGING: CT ABD & PELVIS W/O CONTRAST FINDINGS: There is a large soft tissue mass in the left hemipelvis measuring roughly 10.5 x 8.5 x 10.0 cm which is inseparable from the left ileo psoas muscle as well as the left iliac vessels most compatible with large concomitant adenopathy. Lesion causes associated distal ureteral obstruction and grade 3 hydroureteronephrosis which is likely chronic based on the mildly atrophic appearance to the left kidney. Further significant adenopathy involving the left groin is appreciated including lymph node measuring up to 4.7 cm diameter. Findings are consistent with the patient's history of lymphoma. Liver, spleen, pancreas, gallbladder, bilateral adrenal glands and right kidney are essentially normal. The enteric system is without obstruction or acute inflammatory process. Subtle central mesenteric fat stranding and prominent lymph nodes to the mesentery are also identified measuring up to approximately 13 mm. Further evaluation of the pelvis demonstrates normal bladder and prostatomegaly. No ascites. No free air. Musculoskeletal structures are intact. Lung bases are clear. IMPRESSION: Large conglomerate adenopathy/mass involving the left hemipelvis inseparable from the left ileo psoas muscle as well as the left iliac artery and vein and causing presumed chronic moderate left hydroureteronephrosis. Further enlarged lymph nodes in the left groin and mildly prominent lymph nodes in the mesentery noted as well. PROGNOSIS: Good ACTIVITY: As tolerated DIET: Regular DISCHARGE INSTRUCTIONS: Follow-up with oncologist within 2 to 3 days. Follow-up with urology in 10 to 14 days. DISCHARGE CONDITION: Stable TIME SPENT ON DISCHARGE: 25 minutes. Vital Signs/I&Os Vital Signs Date Time Temp Pulse Resp B/P (MAP) Pulse Ox O2 Delivery O2 Flow Rate FiO2 08/19/21 13:15 18 08/19/21 08:41 165/87 08/19/21 05:59 97.8 76 97 Room Air I&O- Last 24 Hours up to 6 AM 08/19/21 06:00 Intake Total 1800 ml Output Total 1600 ml Balance 200 ml Laboratory Data Labs 24H Laboratory Tests 2 08/18/21 16:17: Coronavirus (COVID-19)(PCR) NEGATIVE 08/19/21 05:47: Nucleated Red Blood Cells % (auto) 0.0, Anion Gap 6L, Glomerular Filtration Rate 43.8, Calcium Level 8.9, Phosphorus Level 3.5, Magnesium Level 1.9 CBC/BMP Laboratory Tests 08/19/21 05:47 Discharge Medications Scheduled Allopurinol (Allopurinol) 100 Mg Tablet, 2 TAB PO BID Allopurinol (Allopurinol) 100 Mg Tablet, 200 MG PO BID Apixaban (Eliquis) 5 Mg Tablet, 5 MG PO BID, (Reported) Lisinopril (Lisinopril) 20 Mg Tablet, 20 MG PO DAILY, (Reported) Omeprazole (Omeprazole) 20 Mg Capsule.dr, 20 MG PO DAILY, (Reported) Ondansetron HCl (Ondansetron HCl) 8 Mg Tablet, 8 MG PO Q12H Prednisone (Prednisone) 50 Mg Tablet, 100 MG PO DAILY Take 2 tablets daily starting with day of chemotherapy for 5 days (days 1-5) Simvastatin (Simvastatin) 20 Mg Tablet, 20 MG PO QPM, (Reported) Scheduled PRN Guaifenesin/Dextromethorphan (Cough Dm Syrup) 118 Ml Syrup, 5 ML PO Q6H PRN for COUGH, (Reported) Loperamide HCl (Loperamide) 2 Mg Capsule, 2 MG PO Q6H PRN for AFTER EACH LOOSE STOOL, (Reported) Oxycodone HCl/Acetaminophen (Percocet 2.5-325 mg Tablet) 1 Each Tablet, 1 TAB PO DAILY PRN for PAIN LEVEL 7-10 Prochlorperazine Maleate (Prochlorperazine Maleate) 10 Mg Tablet, 10 MG PO Q6H PRN for NAUSEA OR VOMITING Allergies Coded Allergies: No Known Allergies (Verified Allergy, Unknown, 07/05/21) ANDREW LEE M.D. Aug 19, 2021 13:38
== END 2021-08-19 14:59 | disposition home or self-care (01) | DRG 694 ==
LOC: M MS5PR 13:31
PROVIDERS: ADMIT Internal Medicine Nephrology; ATTEND Internal Medicine
DX: N13.0 Hydronephrosis with ureteropelvic junction obstruction (principal); C83.33 Diffuse large B-cell lymphoma, intra-abdominal lymph nodes; I12.9 Hypertensive chronic kidney disease with stage 1 through stage 4 chronic kidney disease, or unspecified chronic kidney disease; E78.5 Hyperlipidemia, unspecified; K21.9 Gastro-esophageal reflux disease without esophagitis; N18.30 Chronic kidney disease, stage 3 unspecified; Z79.01 Long term (current) use of anticoagulants; Z79.899 Other long term (current) drug therapy; Z86.718 Personal history of other venous thrombosis and embolism; Z20.822 Contact with and (suspected) exposure to COVID-19

== ENCOUNTER → 2021-08-29 | Outpatient (POV) | payer MEDICARE, OTHER ==
[~2021-08-29] VITALS: Ht 165.1 cm; Wt 90.9 kg
[~2021-08-29] MED LIST changes: +LOPE1CAP5 PO; +OMEP-173 PO; -OMEP-218 PO; +ONDA-84 PO; -ONDA8TAB10 PO; +OXYC1TAB23 PO; +PERC2.5T PO; -PROC10TA4 PO; +PROC10TA5 PO; +[UNRECOGNIZED DRUG - CODE] PO
[2021-08-29 10:10] VITALS: BP 170/90
== END ==
LOC: M IRPOV 09:59
PROVIDERS: ATTEND Radiology Diagnostic Radiology
DX: Z45.2 Encounter for adjustment and management of vascular access device (principal)

== ENCOUNTER → 2021-10-16 | Outpatient (CLI) | payer MEDICARE, OTHER | LOC: M PLARAD 08:36 | PROVIDERS: ATTEND Internal Medicine Medical Oncology | DX: C83.38 Diffuse large B-cell lymphoma, lymph nodes of multiple sites (principal) | CPT/HCPCS: 78815; A9552 ==

== ENCOUNTER → 2021-10-26 | Outpatient (CLI) | payer MEDICARE, OTHER | LOC: M RAD 10:23 | PROVIDERS: ATTEND Internal Medicine Medical Oncology | DX: N32.0 Bladder-neck obstruction (principal) ==